=== PATIENT | male | born 1975 | race Two or more races ===

== ENCOUNTER 2017-09-19 15:21 | Inpatient (IN) | payer OTHER ==
[2017-09-19 15:31] VITALS: BMI 32.3
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
[2017-09-19] MEDS ORDERED: MAGNESIUM HYDROX 2400MG/30ML ORAL SUSPENSION 30 ML CUP PO PRN (18:02)
[2017-09-19] MEDS ORDERED: IBUPROFEN 400 MG TABLET (FP) PO PRN (18:02)
[2017-09-19] MEDS ORDERED: MENTHOL/PHENOL 1 EACH UD MM PRN (18:02)
[2017-09-19] MEDS ORDERED: MAG HYDROX/AL HYDROX/SIMETH 30 ML UNIT-DOSE CUP PO PRN (18:02)
[2017-09-19] MEDS ORDERED: MAGNESIUM CITRATE 300 ML BOTTLE PO PRN (18:02)
[2017-09-19] MEDS ORDERED: LOPERAMIDE HCL 2 MG CAPSULE PO PRN (18:02)
[2017-09-19] MEDS ORDERED: METHADONE HCL 10 MG TABLET (FOR DETOX USE ONLY) PO ONE ×2 (18:02→23:00)
[2017-09-19] MEDS ORDERED: P-EPHED 60MG/TRIPROLIDI 2.5MG TABLET PO PRN (18:02)
[2017-09-19] MEDS ORDERED: NICOTINE POLACRILEX 4 MG GUM BC PRN (18:02)
[2017-09-19] MEDS ORDERED: guaiFENesin/D-METHORPHAN HB 10 ML UNIT-DOSE CUPS PO PRN (18:02)
[2017-09-19] MEDS ORDERED: diazePAM 5 MG TABLET PO ONE (18:45)
[2017-09-19] MEDS: NICOTINE 21 MG/24 HOURS TOPICAL PATCH TD SCH (19:23)
[2017-09-19 21:22] LABS: URINE APPEARANCE TURBID; URINE BLOOD NEGATIVE (NEGATIVE); URINE COLOR YELLOW; URINE GLUCOSE (UA) NEGATIVE (NEGATIVE); URINE KETONE TRACE (NEGATIVE); URINE LEUK ESTERASE NEGATIVE (NEGATIVE); URINE NITRITE NEGATIVE (NEGATIVE); URINE UROBILINOGEN 4.0 E.U/dl mg/dL (0.2-1.0)
[2017-09-19 21:24] LABS: URINE PROTEIN 1+ (NEGATIVE)
[2017-09-19 21:26] LABS: EPI CELLS FEW /HPF (FEW); URINE BACTERIA RARE /hpf (NONE SEEN); URINE MUCUS MANY
[2017-09-19] MEDS ORDERED: MELATONIN 5 MG TABLETS PO PRN (22:00)
[2017-09-19] MEDS: THIAMINE HCL 100 MG TABLET (FP) PO SCH (22:20)
[2017-09-19] MEDS: BACITRACIN 0.9 GM PACKET TP SCH (22:21)
[2017-09-19] MEDS: diazePAM 5 MG TABLET PO SCH (22:21)
[2017-09-20] MEDS: diazePAM 5 MG TABLET PO SCH ×3 (05:42→22:24)
[2017-09-20] MEDS ORDERED: METHADONE HCL 10 MG TABLET PO SCH (07:00)
[2017-09-20] MEDS ORDERED: METHADONE HCL 10 MG TABLET ONE (07:19)
[2017-09-20] MEDS ORDERED: METHADONE HCL 40 MG DISPERSABLE TABLET ONE (07:20)
[2017-09-20] MEDS: METHADONE 80 MG, METHADONE 30 MG PO SCH (07:36)
[2017-09-20] MEDS ORDERED: METHADONE HCL 10 MG TABLET (FOR DETOX USE ONLY) PO SCH (10:00)
[2017-09-20 10:17] LABS: ALBUMIN 3.2 g/dl (3.4-5.0); ANION GAP 4 (8-16); BLOOD UREA NITROGEN 8 mg/dL (7-18); CALCIUM 8.2 mg/dL (8.5-10.1); CHLORIDE 106 mmol/L (98-107); CO2 29 mmol/L (21-32); GLUCOSE,RANDOM 94 mg/dL (74-106); POTASSIUM 3.9 mmol/L (3.5-5.1); SODIUM 139 mmol/L (136-145)
[2017-09-20 10:19] LABS: ALK PHOS 70 U/L (45-117); BILIRUBIN,TOTAL 0.2 mg/dL (0.2-1.0); CREATININE 0.8 mg/dL (0.7-1.3); HEMATOCRIT 37.3 % (35.4-49); HEMOGLOBIN 12.7 GM/dL (11.7-16.9); MCH 30.3 pg (25.7-33.7); MEAN CELL VOLUME 89.2 fl (80-96); MEAN PLT VOLUME 10.1 fl (7.5-11.1); PLATELET COUNT 164 K/MM3 (134-434); RBC 4.18 M/mm3 (4.00-5.60); RDW 13.9 % (11.9-15.9); SGOT/AST 67 U/L (15-37); SGPT/ALT 112 U/L (12-78); TOT PROT 6.4 g/dl (6.4-8.2); WHITE BLOOD COUNT 3.9 K/mm3 (4.0-10.0)
[2017-09-20] MEDS: PRENATAL VITAMINS W/ FOLIC ACID TABLET (FP) PO SCH (10:29)
[2017-09-20] MEDS: TOLNAFTATE 1% CREAM 15 GM TUBE TP SCH ×2 (10:29→22:24)
[2017-09-20] MEDS: BACITRACIN 0.9 GM PACKET TP SCH ×2 (10:29→22:24)
[2017-09-20] MEDS: NICOTINE 21 MG/24 HOURS TOPICAL PATCH TD SCH (10:29)
--- NOTE | 2017-09-20 10:53 | EKG ---
Test Reason : Blood Pressure : / mmHG Vent. Rate : 072 BPM Atrial Rate : 072 BPM P-R Int : 136 ms QRS Dur : 090 ms QT Int : 406 ms P-R-T Axes : 027 064 030 degrees QTc Int : 444 ms NORMAL SINUS RHYTHM NORMAL ECG NO PREVIOUS ECGS AVAILABLE Confirmed by AILYN YUAN, MATTIE ([id number]) on 09/20/2017 10:52:44 AM Referred By: Confirmed By:MATTIE ROBERTSON MD
--- NOTE | 2017-09-20 11:16 | PN ---
[facility] CIWA - CIWA Score Nausea/Vomitin-No Nausea/No Vomiting Muscle Tremors: 4-Moderate,w/Arms Extend Anxiety: 4-Mod. Anxious/Guarded Agitation: 4-Moderately Restless Paroxysmal Sweats: 1-Minimal Palms Moist Orientation: 0-Oriented Tacttile Disturbances: 3-Moderate Itch/Numb/Burn Auditory Disturbances: 0-None Visual Disturbances: 0-None Headache: 0-None Present CIWA-Ar Total Score: 16 S Progress Note (SOAP) Subjective: ANXIETY,SWEATS,RESTLESSNESS,FATIGUE, Objective: 09/20/17 11:15 Vital Signs Temperature 95.7 F L 09/20/17 09:24 Pulse Rate 79 09/20/17 09:24 Respiratory Rate 18 09/20/17 09:24 Blood Pressure 120/76 09/20/17 09:24 O2 Sat by Pulse Oximetry (%) Laboratory Last Values WBC 3.9 K/mm3 (4.0-10.0) L D 09/20/17 07:30 RBC 4.18 M/mm3 (4.00-5.60) 09/20/17 07:30 Hgb 12.7 GM/dL (11.7-16.9) 09/20/17 07:30 Hct 37.3 % (35.4-49) 09/20/17 07:30 MCV 89.2 fl (80-96) 09/20/17 07:30 MCH 30.3 pg (25.7-33.7) 09/20/17 07:30 MCHC 34.0 g/dl (32.0-35.9) 09/20/17 07:30 RDW 13.9 % (11.9-15.9) 09/20/17 07:30 Plt Count 164 K/MM3 (134-434) D 09/20/17 07:30 MPV 10.1 fl (7.5-11.1) 09/20/17 07:30 Sodium 139 mmol/L (136-145) 09/20/17 07:30 Potassium 3.9 mmol/L (3.5-5.1) 09/20/17 07:30 Chloride 106 mmol/L (98-107) 09/20/17 07:30 Carbon Dioxide 29 mmol/L (21-32) 09/20/17 07:30 Anion Gap 4 (8-16) L 09/20/17 07:30 BUN 8 mg/dL (7-18) D 09/20/17 07:30 Creatinine 0.8 mg/dL (0.7-1.3) 09/20/17 07:30 Creat Clearance w eGFR > 60 (>60) 09/20/17 07:30 Random Glucose 94 mg/dL (74-106) 09/20/17 07:30 Calcium 8.2 mg/dL (8.5-10.1) L 09/20/17 07:30 Total Bilirubin 0.2 mg/dL (0.2-1.0) D 09/20/17 07:30 AST 67 U/L (15-37) H D 09/20/17 07:30 ALT 112 U/L (12-78) H D 09/20/17 07:30 Alkaline Phosphatase 70 U/L (45-117) D 09/20/17 07:30 Total Protein 6.4 g/dl (6.4-8.2) 09/20/17 07:30 Albumin 3.2 g/dl (3.4-5.0) L 09/20/17 07:30 Urine Color Yellow 09/19/17 20:00 Urine Appearance Turbid 09/19/17 20:00 Urine pH 5.0 (5.0-8.0) 09/19/17 20:00 Ur Specific [place] 1.032 (1.001-1.035) 09/19/17 20:00 Urine Protein 1+ (NEGATIVE) H 09/19/17 20:00 Urine Glucose (UA) Negative (NEGATIVE) 09/19/17 20:00 Urine Ketones Trace (NEGATIVE) H 09/19/17 20:00 Urine Blood Negative (NEGATIVE) 09/19/17 20:00 Urine Nitrite Negative (NEGATIVE) 09/19/17 20:00 Urine Bilirubin 2.0 (<2.0 mg/dL) 09/19/17 20:00 Urine Urobilinogen 4.0 e.u/dl mg/dL (0.2-1.0) 09/19/17 20:00 Ur Leukocyte Esterase Negative (NEGATIVE) 09/19/17 20:00 Urine WBC (Auto) 4 /hpf (3-5) 09/19/17 20:00 Urine RBC (Auto) 14 /hpf (0-3) 09/19/17 20:00 Ur Epithelial Cells Few /HPF (FEW) 09/19/17 20:00 Urine Bacteria Rare /hpf (NONE SEEN) 09/19/17 20:00 Urine Mucus Many 09/19/17 20:00 OTHER LABS PENDING Assessment: 09/20/17 11:16 WITHDRAWAL SX Plan: CONTINUE DETOX
[2017-09-20 12:04] LABS: RPR REACTIVE 1:1 (NONREACTIVE)
[2017-09-20 12:05] LABS: TREPONEMA ANTIBODY PREVIOUSLY REACTIVE (NONREACTIVE)
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
[2017-09-20] MEDS: ACETAMINOPHEN 325 MG TABLET (FP) PO PRN (19:17)
[2017-09-20] MEDS: THIAMINE HCL 100 MG TABLET (FP) PO SCH (22:24)
[2017-09-21] MEDS ORDERED: METHADONE HCL 40 MG DISPERSABLE TABLET ONE (04:26)
[2017-09-21] MEDS ORDERED: METHADONE HCL 10 MG TABLET ONE (04:26)
[2017-09-21] MEDS: METHADONE 80 MG, METHADONE 30 MG PO SCH (05:44)
[2017-09-21] MEDS: diazePAM 5 MG TABLET PO PRN (05:46)
[2017-09-21] MEDS: BACITRACIN 0.9 GM PACKET TP SCH ×2 (09:46→22:28)
[2017-09-21] MEDS: ACETAMINOPHEN 325 MG TABLET (FP) PO PRN (09:46)
[2017-09-21] MEDS: diazePAM 5 MG TABLET PO SCH ×2 (09:46→22:28)
[2017-09-21] MEDS: PRENATAL VITAMINS W/ FOLIC ACID TABLET (FP) PO SCH (09:46)
[2017-09-21] MEDS: NICOTINE 21 MG/24 HOURS TOPICAL PATCH TD SCH (09:46)
[2017-09-21] MEDS: TOLNAFTATE 1% CREAM 15 GM TUBE TP SCH ×2 (09:51→22:28)
[2017-09-21] MEDS ORDERED: METHADONE HCL 5 MG TABLET (FOR DETOX USE ONLY) PO SCH (10:00)
--- NOTE | 2017-09-21 11:12 | PN ---
[facility] CIWA - CIWA Score Nausea/Vomitin-No Nausea/No Vomiting Muscle Tremors: 3 Anxiety: 3 Agitation: 3 Paroxysmal Sweats: 1-Minimal Palms Moist Orientation: 0-Oriented Tacttile Disturbances: 3-Moderate Itch/Numb/Burn Auditory Disturbances: 0-None Visual Disturbances: 0-None Headache: 0-None Present CIWA-Ar Total Score: 13 BHS Progress Note (SOAP) Subjective: SLIGHT ANXIETY,TREMORS,SWEATS. OOB WITH STEADY GAIT. Objective: 09/21/17 11:11 Vital Signs Temperature 96.3 F L 09/21/17 09:38 Pulse Rate 73 09/21/17 09:38 Respiratory Rate 18 09/21/17 09:38 Blood Pressure 110/74 09/21/17 09:38 O2 Sat by Pulse Oximetry (%) Laboratory Last Values WBC 3.9 K/mm3 (4.0-10.0) L D 09/20/17 07:30 RBC 4.18 M/mm3 (4.00-5.60) 09/20/17 07:30 Hgb 12.7 GM/dL (11.7-16.9) 09/20/17 07:30 Hct 37.3 % (35.4-49) 09/20/17 07:30 MCV 89.2 fl (80-96) 09/20/17 07:30 MCH 30.3 pg (25.7-33.7) 09/20/17 07:30 MCHC 34.0 g/dl (32.0-35.9) 09/20/17 07:30 RDW 13.9 % (11.9-15.9) 09/20/17 07:30 Plt Count 164 K/MM3 (134-434) D 09/20/17 07:30 MPV 10.1 fl (7.5-11.1) 09/20/17 07:30 Sodium 139 mmol/L (136-145) 09/20/17 07:30 Potassium 3.9 mmol/L (3.5-5.1) 09/20/17 07:30 Chloride 106 mmol/L (98-107) 09/20/17 07:30 Carbon Dioxide 29 mmol/L (21-32) 09/20/17 07:30 Anion Gap 4 (8-16) L 09/20/17 07:30 BUN 8 mg/dL (7-18) D 09/20/17 07:30 Creatinine 0.8 mg/dL (0.7-1.3) 09/20/17 07:30 Creat Clearance w eGFR > 60 (>60) 09/20/17 07:30 Random Glucose 94 mg/dL (74-106) 09/20/17 07:30 Calcium 8.2 mg/dL (8.5-10.1) L 09/20/17 07:30 Total Bilirubin 0.2 mg/dL (0.2-1.0) D 09/20/17 07:30 AST 67 U/L (15-37) H D 09/20/17 07:30 ALT 112 U/L (12-78) H D 09/20/17 07:30 Alkaline Phosphatase 70 U/L (45-117) D 09/20/17 07:30 Total Protein 6.4 g/dl (6.4-8.2) 09/20/17 07:30 Albumin 3.2 g/dl (3.4-5.0) L 09/20/17 07:30 Urine Color Yellow 09/19/17 20:00 Urine Appearance Turbid 09/19/17 20:00 Urine pH 5.0 (5.0-8.0) 09/19/17 20:00 Ur Specific [place] 1.032 (1.001-1.035) 09/19/17 20:00 Urine Protein 1+ (NEGATIVE) H 09/19/17 20:00 Urine Glucose (UA) Negative (NEGATIVE) 09/19/17 20:00 Urine Ketones Trace (NEGATIVE) H 09/19/17 20:00 Urine Blood Negative (NEGATIVE) 09/19/17 20:00 Urine Nitrite Negative (NEGATIVE) 09/19/17 20:00 Urine Bilirubin 2.0 (<2.0 mg/dL) 09/19/17 20:00 Urine Urobilinogen 4.0 e.u/dl mg/dL (0.2-1.0) 09/19/17 20:00 Ur Leukocyte Esterase Negative (NEGATIVE) 09/19/17 20:00 Urine WBC (Auto) 4 /hpf (3-5) 09/19/17 20:00 Urine RBC (Auto) 14 /hpf (0-3) 09/19/17 20:00 Ur Epithelial Cells Few /HPF (FEW) 09/19/17 20:00 Urine Bacteria Rare /hpf (NONE SEEN) 09/19/17 20:00 Urine Mucus Many 09/19/17 20:00 RPR Titer Reactive 1:1 (NONREACTIVE) H 09/20/17 07:30 T.pallidum Ab (MHA) Previously reactive (NONREACTIVE) 09/20/17 07:30 HIV 1&2 Antibody Screen Negative 09/20/17 07:30 HIV P24 Antigen Negative 09/20/17 07:30 LABS NOTED Assessment: 09/21/17 11:12 WITHDRAWAL SX Plan: CONTINUE DETOX
[2017-09-21] MEDS: THIAMINE HCL 100 MG TABLET (FP) PO SCH (22:29)
[2017-09-22] MEDS ORDERED: METHADONE HCL 10 MG TABLET ONE (04:56)
[2017-09-22] MEDS ORDERED: METHADONE HCL 40 MG DISPERSABLE TABLET ONE (04:56)
[2017-09-22] MEDS: diazePAM 5 MG TABLET PO PRN ×3 (05:33→17:43)
[2017-09-22] MEDS: METHADONE 80 MG, METHADONE 30 MG PO SCH (05:33)
[2017-09-22] MEDS: diazePAM 5 MG TABLET PO SCH ×2 (10:21→22:08)
[2017-09-22] MEDS: NICOTINE 21 MG/24 HOURS TOPICAL PATCH TD SCH (10:21)
[2017-09-22] MEDS: PRENATAL VITAMINS W/ FOLIC ACID TABLET (FP) PO SCH (10:21)
[2017-09-22] MEDS: TOLNAFTATE 1% CREAM 15 GM TUBE TP SCH ×2 (10:21→22:08)
[2017-09-22] MEDS: BACITRACIN 0.9 GM PACKET TP SCH ×2 (10:21→22:07)
--- NOTE | 2017-09-22 11:44 | PN ---
BHS Progress Note (SOAP) Subjective: DECREASED ANXIETY,SWEATS,FATIGUE. Objective: 09/22/17 11:41 Vital Signs Temperature 99.1 F 09/22/17 09:18 Pulse Rate 76 09/22/17 09:18 Respiratory Rate 18 09/22/17 09:18 Blood Pressure 118/77 09/22/17 09:18 O2 Sat by Pulse Oximetry (%) Laboratory Last Values WBC 3.9 K/mm3 (4.0-10.0) L D 09/20/17 07:30 RBC 4.18 M/mm3 (4.00-5.60) 09/20/17 07:30 Hgb 12.7 GM/dL (11.7-16.9) 09/20/17 07:30 Hct 37.3 % (35.4-49) 09/20/17 07:30 MCV 89.2 fl (80-96) 09/20/17 07:30 MCH 30.3 pg (25.7-33.7) 09/20/17 07:30 MCHC 34.0 g/dl (32.0-35.9) 09/20/17 07:30 RDW 13.9 % (11.9-15.9) 09/20/17 07:30 Plt Count 164 K/MM3 (134-434) D 09/20/17 07:30 MPV 10.1 fl (7.5-11.1) 09/20/17 07:30 Sodium 139 mmol/L (136-145) 09/20/17 07:30 Potassium 3.9 mmol/L (3.5-5.1) 09/20/17 07:30 Chloride 106 mmol/L (98-107) 09/20/17 07:30 Carbon Dioxide 29 mmol/L (21-32) 09/20/17 07:30 Anion Gap 4 (8-16) L 09/20/17 07:30 BUN 8 mg/dL (7-18) D 09/20/17 07:30 Creatinine 0.8 mg/dL (0.7-1.3) 09/20/17 07:30 Creat Clearance w eGFR > 60 (>60) 09/20/17 07:30 Random Glucose 94 mg/dL (74-106) 09/20/17 07:30 Calcium 8.2 mg/dL (8.5-10.1) L 09/20/17 07:30 Total Bilirubin 0.2 mg/dL (0.2-1.0) D 09/20/17 07:30 AST 67 U/L (15-37) H D 09/20/17 07:30 ALT 112 U/L (12-78) H D 09/20/17 07:30 Alkaline Phosphatase 70 U/L (45-117) D 09/20/17 07:30 Total Protein 6.4 g/dl (6.4-8.2) 09/20/17 07:30 Albumin 3.2 g/dl (3.4-5.0) L 09/20/17 07:30 Urine Color Yellow 09/19/17 20:00 Urine Appearance Turbid 09/19/17 20:00 Urine pH 5.0 (5.0-8.0) 09/19/17 20:00 Ur Specific [place] 1.032 (1.001-1.035) 09/19/17 20:00 Urine Protein 1+ (NEGATIVE) H 09/19/17 20:00 Urine Glucose (UA) Negative (NEGATIVE) 09/19/17 20:00 Urine Ketones Trace (NEGATIVE) H 09/19/17 20:00 Urine Blood Negative (NEGATIVE) 09/19/17 20:00 Urine Nitrite Negative (NEGATIVE) 09/19/17 20:00 Urine Bilirubin 2.0 (<2.0 mg/dL) 09/19/17 20:00 Urine Urobilinogen 4.0 e.u/dl mg/dL (0.2-1.0) 09/19/17 20:00 Ur Leukocyte Esterase Negative (NEGATIVE) 09/19/17 20:00 Urine WBC (Auto) 4 /hpf (3-5) 09/19/17 20:00 Urine RBC (Auto) 14 /hpf (0-3) 09/19/17 20:00 Ur Epithelial Cells Few /HPF (FEW) 09/19/17 20:00 Urine Bacteria Rare /hpf (NONE SEEN) 09/19/17 20:00 Urine Mucus Many 09/19/17 20:00 RPR Titer Reactive 1:1 (NONREACTIVE) H 09/20/17 07:30 T.pallidum Ab (MHA) Previously reactive (NONREACTIVE) 09/20/17 07:30 HIV 1&2 Antibody Screen Negative 09/20/17 07:30 HIV P24 Antigen Negative 09/20/17 07:30 Assessment: 09/22/17 11:41 WITHDRAWAL SX Plan: CONTINUE DETOX
[2017-09-22] MEDS ORDERED: FUROSEMIDE 40 MG TABLET (FP) PO ONE (16:13)
--- NOTE | 2017-09-22 16:28 | PN ---
BHS Progress Note Note: Pt c/o bilateral leg edema. exam: 2+ pitting edema, shirley plan:lasix 40 mg po now elevate both legs while in bed.
[2017-09-22] MEDS: THIAMINE HCL 100 MG TABLET (FP) PO SCH (22:38)
[2017-09-23] MEDS ORDERED: METHADONE HCL 10 MG TABLET ONE (03:45)
[2017-09-23] MEDS ORDERED: METHADONE HCL 40 MG DISPERSABLE TABLET ONE (03:45)
[2017-09-23] MEDS: METHADONE 80 MG, METHADONE 30 MG PO SCH (05:44)
[2017-09-23] MEDS: BACITRACIN 0.9 GM PACKET TP SCH ×2 (09:28→22:06)
[2017-09-23] MEDS: PRENATAL VITAMINS W/ FOLIC ACID TABLET (FP) PO SCH (09:28)
[2017-09-23] MEDS: TOLNAFTATE 1% CREAM 15 GM TUBE TP SCH ×2 (09:29→22:06)
[2017-09-23] MEDS: NICOTINE 21 MG/24 HOURS TOPICAL PATCH TD SCH (09:30)
[2017-09-23] MEDS ORDERED: diazePAM 5 MG TABLET PO SCH (10:00)
[2017-09-23] MEDS ORDERED: METHADONE HCL 10 MG TABLET (FOR DETOX USE ONLY) PO SCH (10:00)
--- NOTE | 2017-09-23 15:31 | PN ---
BHS Progress Note (SOAP) Subjective: Anxious, Sweating. Objective: PATIENT A & O X 3, OBSERVED AMBULATING ON UNIT. NO ACUTE DISTRESS. 09/23/17 15:30 Vital Signs Temperature 96.6 F L 09/23/17 11:21 Pulse Rate 75 09/23/17 11:21 Respiratory Rate 20 09/23/17 11:21 Blood Pressure 135/84 09/23/17 11:21 O2 Sat by Pulse Oximetry (%) Laboratory Tests 09/19/17 09/20/17 09/20/17 20:00 07:30 07:30 WBC 3.9 L D RBC 4.18 Hgb 12.7 Hct 37.3 MCV 89.2 MCH 30.3 MCHC 34.0 RDW 13.9 Plt Count 164 D MPV 10.1 Sodium Potassium Chloride Carbon Dioxide Anion Gap BUN Creatinine Creat Clearance w eGFR Random Glucose Calcium Total Bilirubin AST ALT Alkaline Phosphatase Total Protein Albumin Urine Color Yellow Urine Appearance Turbid Urine pH 5.0 Ur Specific [place] 1.032 Urine Protein 1+ H Urine Glucose (UA) Negative Urine Ketones Trace H Urine Blood Negative Urine Nitrite Negative Urine Bilirubin 2.0 Urine Urobilinogen 4.0 e.u/dl Ur Leukocyte Esterase Negative Urine WBC (Auto) 4 Urine RBC (Auto) 14 Ur Epithelial Cells Few Urine Bacteria Rare Urine Mucus Many RPR Titer T.pallidum Ab (MHA) HIV 1&2 Antibody Screen Negative HIV P24 Antigen Negative 09/20/17 09/20/17 07:30 07:30 WBC RBC Hgb Hct MCV MCH MCHC RDW Plt Count MPV Sodium 139 Potassium 3.9 Chloride 106 Carbon Dioxide 29 Anion Gap 4 L BUN 8 D Creatinine 0.8 Creat Clearance w eGFR > 60 Random Glucose 94 Calcium 8.2 L Total Bilirubin 0.2 D AST 67 H D ALT 112 H D Alkaline Phosphatase 70 D Total Protein 6.4 Albumin 3.2 L Urine Color Urine Appearance Urine pH Ur Specific [place] Urine Protein Urine Glucose (UA) Urine Ketones Urine Blood Urine Nitrite Urine Bilirubin Urine Urobilinogen Ur Leukocyte Esterase Urine WBC (Auto) Urine RBC (Auto) Ur Epithelial Cells Urine Bacteria Urine Mucus RPR Titer Reactive 1:1 H T.pallidum Ab (MHA) Previously reactive HIV 1&2 Antibody Screen HIV P24 Antigen LABS NOTED. Assessment: 09/23/17 15:30 WITHDRAWAL SYMPTOMS. Plan: CONTINUE DETOX. PATIENT ORIGINALLY SCHEDULED FOR DISCHARGE FROM DETOX TODAY. HOWEVER, PATIENT DID NOT LEAVE UNIT IN TIME TO BE ABLE TO GET TO [facility] IN [place], .. FOR TOMORROW'S MMTP DOSE. PATIENT TO BE DISCHARGED FROM DETOX UNIT TO [facility] AFTER RECEIVING AM MMTP DOSE. PATIENT VERBALIZED UNDERSTANDING.
[2017-09-23] MEDS: THIAMINE HCL 100 MG TABLET (FP) PO SCH (22:06)
[2017-09-24] MEDS ORDERED: METHADONE HCL 10 MG TABLET ONE (04:49)
[2017-09-24] MEDS ORDERED: METHADONE HCL 40 MG DISPERSABLE TABLET ONE (04:50)
[2017-09-24] MEDS ORDERED: METHADONE HCL 5 MG TABLET (FOR DETOX USE ONLY) PO SCH (06:00)
[2017-09-24] MEDS: METHADONE 80 MG, METHADONE 30 MG PO SCH (06:03)
[2017-09-24 06:21] VITALS: BP 117/76; PULSE 71; TEMP 96.2
--- NOTE | 2017-09-24 09:27 | DS ---
[facility] Detox Discharge Summary Admission Date: 09/19/17 Discharge Date: 09/24/17 - History Present History: Alcohol Dependence, Cannabis Dependence, Cocaine Dependence, Sedative Dependence - Physical Exam Results Vital Signs: Vital Signs Temperature 96.2 F L 09/24/17 06:21 Pulse Rate 71 09/24/17 06:21 Respiratory Rate 18 09/24/17 06:21 Blood Pressure 117/76 09/24/17 06:21 O2 Sat by Pulse Oximetry (%) - Treatment Hospital Course: Detox Protocol Followed, Detoxed Safely, Responded well, Discharged Condition Good, Rehab Referral Accepted - Medication Discharge Medications: Ambulatory Orders NK [No Known Home Medication] 09/19/17 - Diagnosis (1) Cocaine dependence Current Visit: Yes Status: Chronic Qualifiers: Substance use status: uncomplicated Qualified Code(s): F14.20 - Cocaine dependence, uncomplicated (2) Drug-induced mood disorder Current Visit: Yes Status: Acute (3) Nicotine dependence Current Visit: Yes Status: Chronic Qualifiers: Nicotine product type: cigarettes Substance use status: uncomplicated Qualified Code(s): F17.210 - Nicotine dependence, cigarettes, uncomplicated (4) Opioid dependence on agonist therapy Current Visit: Yes Status: Acute (5) Sedative, hypnotic or anxiolytic dependence with withdrawal, uncomplicated Current Visit: Yes Status: Chronic (6) Wound cellulitis Current Visit: Yes Status: Acute (7) Hepatitis C Current Visit: Yes Status: Chronic Qualifiers: Viral hepatitis chronicity: chronic Hepatic coma status: without hepatic coma Qualified Code(s): B18.2 - Chronic viral hepatitis C (8) Methadone maintenance therapy patient Current Visit: Yes Status: Chronic (9) Syphilitic chancre of penis Current Visit: Yes Status: Chronic (10) Weight loss Current Visit: No Status: Acute (11) Alcohol dependence with uncomplicated withdrawal Current Visit: Yes Status: Chronic (12) Cannabis dependence Current Visit: No Status: Chronic - AMA Did Patient Leave Against Medical Advice: No
== END 2017-09-24 10:34 | disposition home or self-care (01) | DRG 897 ==
LOC: YASAS 15:21 → Y3N 18:03
PROVIDERS: ADMIT Internal Medicine; ATTEND Internal Medicine
PROC: HZ2ZZZZ Detoxification Services for Substance Abuse Treatment (ICD-10-PCS; principal; 2017-09-19)
DX: F11.20 Opioid dependence, uncomplicated (principal); F13.230 Sedative, hypnotic or anxiolytic dependence with withdrawal, uncomplicated; F10.230 Alcohol dependence with withdrawal, uncomplicated; F14.20 Cocaine dependence, uncomplicated; L03.90 Cellulitis, unspecified; F12.20 Cannabis dependence, uncomplicated; F17.210 Nicotine dependence, cigarettes, uncomplicated; F19.24 Other psychoactive substance dependence with psychoactive substance-induced mood disorder; F32.9 Major depressive disorder, single episode, unspecified; B18.2 Chronic viral hepatitis C; A51.0 Primary genital syphilis; R63.4 Abnormal weight loss; Z68.32 Body mass index [BMI] 32.0-32.9, adult
CPT/HCPCS: 36415; 71046-TC-FY; 80053; 81003; 81015; 85027; 86593; 86780; 87389; 93005; 93010

== ENCOUNTER 2018-01-25 11:56 | Inpatient (IN) | payer OTHER ==
[2018-01-25 13:05] VITALS: BMI 31.3
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
[2018-01-25] MEDS ORDERED: guaiFENesin/D-METHORPHAN HB 10 ML UNIT-DOSE CUPS PO PRN (15:02)
[2018-01-25] MEDS ORDERED: hydrOXYzine PAMOATE 25 MG CAPSULE (FP) PO PRN (15:02)
[2018-01-25] MEDS ORDERED: MAG HYDROX/AL HYDROX/SIMETH 30 ML UNIT-DOSE CUP PO PRN (15:02)
[2018-01-25] MEDS ORDERED: MAGNESIUM HYDROX 2400MG/30ML ORAL SUSPENSION 30 ML CUP PO PRN (15:02)
[2018-01-25] MEDS ORDERED: ACETAMINOPHEN 325 MG TABLET (FP) PO PRN (15:02)
[2018-01-25] MEDS ORDERED: IBUPROFEN 400 MG TABLET (FP) PO PRN (15:02)
[2018-01-25] MEDS ORDERED: MAGNESIUM CITRATE 300 ML BOTTLE PO PRN (15:02)
[2018-01-25] MEDS ORDERED: P-EPHED 60MG/TRIPROLIDI 2.5MG TABLET PO PRN (15:02)
[2018-01-25] MEDS ORDERED: LOPERAMIDE HCL 2 MG CAPSULE PO PRN (15:02)
[2018-01-25] MEDS ORDERED: MENTHOL/PHENOL 1 EACH UD MM PRN (15:02)
[2018-01-25] MEDS ORDERED: ALBUTEROL SO4 8 GM HFA INHALER IH PRN (15:07)
[2018-01-25] MEDS ORDERED: diazePAM 5 MG TABLET PO ONE (15:30)
[2018-01-25] MEDS: NICOTINE 21 MG/24 HOURS TOPICAL PATCH TD SCH (17:34)
[2018-01-25] MEDS ORDERED: CEPHALEXIN MONOHYDRATE 500 MG CAPSULE (UD) PO SCH (18:00)
[2018-01-25] MEDS ORDERED: MELATONIN 5 MG TABLETS PO PRN (22:00)
[2018-01-25] MEDS: SULFAMETHOXAZOLE/TRIMETHOPRIM 800MG/160MG D.S. TABLET PO SCH (22:28)
[2018-01-25] MEDS: THIAMINE HCL 100 MG TABLET (FP) PO SCH (22:28)
[2018-01-25] MEDS: diazePAM 5 MG TABLET PO SCH (22:29)
[2018-01-25 23:03] LABS: URINE APPEARANCE TURBID; URINE COLOR YELLOW; URINE GLUCOSE (UA) NEGATIVE (NEGATIVE); URINE KETONE NEGATIVE (NEGATIVE); URINE LEUK ESTERASE NEGATIVE (NEGATIVE); URINE NITRITE NEGATIVE (NEGATIVE); URINE UROBILINOGEN 4.0 E.U/dl mg/dL (0.2-1.0)
[2018-01-25 23:18] LABS: URINE PROTEIN 1+ (NEGATIVE)
[2018-01-25 23:21] LABS: URINE MUCUS MANY
[2018-01-26] MEDS: diazePAM 5 MG TABLET PO SCH ×3 (06:02→22:01)
[2018-01-26 09:53] LABS: HEMATOCRIT 41.6 % (35.4-49); HEMOGLOBIN 14.3 GM/dL (11.7-16.9); MCH 30.4 pg (25.7-33.7); MCHC 34.3 g/dl (32.0-35.9); MEAN CELL VOLUME 88.5 fl (80-96); MEAN PLT VOLUME 10.7 fl (7.5-11.1); PLATELET COUNT 215 K/MM3 (134-434); RDW 14.8 % (11.9-15.9); WHITE BLOOD COUNT 6.3 K/mm3 (4.0-10.0)
[2018-01-26] MEDS: SULFAMETHOXAZOLE/TRIMETHOPRIM 800MG/160MG D.S. TABLET PO SCH ×2 (10:20→22:03)
[2018-01-26] MEDS: PRENATAL VITAMINS W/ FOLIC ACID TABLET (FP) PO SCH (10:21)
[2018-01-26] MEDS: NICOTINE 21 MG/24 HOURS TOPICAL PATCH TD SCH (10:21)
[2018-01-26] MEDS: diazePAM 5 MG TABLET PO PRN (10:21)
[2018-01-26] MEDS: METHADONE HCL 40 MG DISPERSABLE TABLET PO SCH (10:21)
[2018-01-26 10:44] LABS: ALK PHOS 95 U/L (45-117); ANION GAP 9 (8-16); BLOOD UREA NITROGEN 9 mg/dL (7-18); CALCIUM 9.5 mg/dL (8.5-10.1); CHLORIDE 104 mmol/L (98-107); CO2 28 mmol/L (21-32); CREATININE 1.2 mg/dL (0.7-1.3); GLUCOSE,RANDOM 128 mg/dL (74-106); POTASSIUM 4.1 mmol/L (3.5-5.1); SGOT/AST 117 U/L (15-37); SGPT/ALT 162 U/L (12-78); SODIUM 141 mmol/L (136-145); TOT PROT 8.4 g/dl (6.4-8.2)
[2018-01-26] MEDS: TOLNAFTATE 1% CREAM 15 GM TUBE TP SCH ×2 (11:00→22:02)
[2018-01-26] MEDS: HYDROCORTISONE 0.5% TOPICAL CREAM 30 GM TUBE TP SCH ×2 (11:06→22:02)
--- NOTE | 2018-01-26 11:30 | PN ---
S CIWA - CIWA Score Nausea/Vomitin Muscle Tremors: 3 Anxiety: 3 Agitation: 3 Paroxysmal Sweats: 1-Minimal Palms Moist Orientation: 0-Oriented Tacttile Disturbances: 1-Very Mild Itch/Numbness Auditory Disturbances: 1-Very Mild Visual Disturbances: 0-None Headache: 2-Mild CIWA-Ar Total Score: 17 BHS Progress Note (SOAP) Subjective: alert,irritable,anxious,interrupted sleep,tremor,pain in the body,rah left hand Objective: 01/26/18 11:25 Vital Signs Temperature 96.3 F L 01/26/18 09:48 Pulse Rate 67 01/26/18 09:48 Respiratory Rate 20 01/26/18 09:48 Blood Pressure 119/65 01/26/18 09:48 O2 Sat by Pulse Oximetry (%) ekg nsr,non specific t qt/qtc 346/365 no chest pain,no sob,no dizziness Laboratory Last Values WBC 6.3 K/mm3 (4.0-10.0) 01/26/18 06:00 RBC 4.70 M/mm3 (4.00-5.60) 01/26/18 06:00 Hgb 14.3 GM/dL (11.7-16.9) 01/26/18 06:00 Hct 41.6 % (35.4-49) 01/26/18 06:00 MCV 88.5 fl (80-96) 01/26/18 06:00 MCH 30.4 pg (25.7-33.7) 01/26/18 06:00 MCHC 34.3 g/dl (32.0-35.9) 01/26/18 06:00 RDW 14.8 % (11.9-15.9) 01/26/18 06:00 Plt Count 215 K/MM3 (134-434) D 01/26/18 06:00 MPV 10.7 fl (7.5-11.1) 01/26/18 06:00 Sodium 141 mmol/L (136-145) 01/26/18 06:00 Potassium 4.1 mmol/L (3.5-5.1) 01/26/18 06:00 Chloride 104 mmol/L (98-107) 01/26/18 06:00 Carbon Dioxide 28 mmol/L (21-32) 01/26/18 06:00 Anion Gap 9 (8-16) 01/26/18 06:00 BUN 9 mg/dL (7-18) 01/26/18 06:00 Creatinine 1.2 mg/dL (0.7-1.3) 01/26/18 06:00 Creat Clearance w eGFR > 60 (>60) 01/26/18 06:00 POC Glucometer 122 UNITS (80-120) 01/26/18 05:34 Random Glucose 128 mg/dL (74-106) H D 01/26/18 06:00 Calcium 9.5 mg/dL (8.5-10.1) 01/26/18 06:00 Total Bilirubin 1.0 mg/dL (0.2-1.0) 01/26/18 06:00 AST 117 U/L (15-37) H D 01/26/18 06:00 ALT 162 U/L (12-78) H D 01/26/18 06:00 Alkaline Phosphatase 95 U/L (45-117) 01/26/18 06:00 Total Protein 8.4 g/dl (6.4-8.2) H 01/26/18 06:00 Albumin 4.0 g/dl (3.4-5.0) 01/26/18 06:00 Urine Color Yellow 01/25/18 21:20 Urine Appearance Turbid 01/25/18 21:20 Urine pH 5.0 (5.0-8.0) 01/25/18 21:20 Ur Specific [place] 1.033 (1.001-1.035) 01/25/18 21:20 Urine Protein 1+ (NEGATIVE) H 01/25/18 21:20 Urine Glucose (UA) Negative (NEGATIVE) 01/25/18 21:20 Urine Ketones Negative (NEGATIVE) 01/25/18 21:20 Urine Blood Negative (NEGATIVE) 01/25/18 21:20 Urine Nitrite Negative (NEGATIVE) 01/25/18 21:20 Urine Bilirubin 2.0 (<2.0 mg/dL) 01/25/18 21:20 Urine Urobilinogen 4.0 e.u/dl mg/dL (0.2-1.0) 01/25/18 21:20 Ur Leukocyte Esterase Negative (NEGATIVE) 01/25/18 21:20 Urine WBC (Auto) None /hpf (3-5) 01/25/18 21:20 Urine RBC (Auto) 2 /hpf (0-3) 01/25/18 21:20 Urine Mucus Many 01/25/18 21:20 01/26/18 11:27 labs pending Assessment: 01/26/18 11:27 withdrawal symptom Plan: continue detox,d/c tylenol due to elevation of alt,ast,repeat alt,ast,inr in am , rash left hand hydrocortisone cream,benadryl 25 mgs po q 6 hrs prn for itching
--- NOTE | 2018-01-26 13:14 | CONSULT ---
[facility] Psychiatric Consult - Data Date of interview: 01/26/18 Admission source: [facility] Identifying data: This is 42 yo H single childless male,unemployed,supported by SSD. Substance Abuse History: Reports cocaine since 17 yo,3-4 bags daily,heroin iv since 17 yo,2-3 bags daily,Xanax since 34 yo,up to 18 mg po daily. Medical History: BA,Hep C,Anemia,H/O Siphylis. Psychiatric History: Patient denies histoy of psychiatric treatment stating that his problems associated to his drug abuse.He is currently on MMTP(100 mg po daily) at [facility] in the [place]. Physical/Sexual Abuse/Trauma History: denies Mental Status Exam - Mental Status Exam Alert and Oriented to: Time, Place, Person Cognitive Function: Grossly Intact Patient Appearance: Unkempt Mood: Euthymic Affect: Appropriate, Mood Congruent Patient Behavior: Cooperative Speech Pattern: Clear Voice Loudness: Normal Thought Process: Goal Oriented Thought Disorder: Not Present Hallucinations: Denies Suicidal Ideation: Denies Homicidal Ideation: Denies Insight/Judgement: Fair Sleep: Fair Appetite: Fair Muscle strength/Tone: Normal Gait/Station: Normal Psychiatric Findings - Problem List ([place] 1, 2,3) (1) Contact dermatitis Current Visit: Yes Status: Chronic (2) Tinea pedis Current Visit: Yes Status: Chronic (3) Drug-induced mood disorder Current Visit: Yes Status: Chronic (4) Opioid dependence on agonist therapy Current Visit: Yes Status: Chronic (5) Weight loss Current Visit: Yes Status: Acute (6) Wound cellulitis Current Visit: Yes Status: Acute (7) Alcohol dependence with uncomplicated withdrawal Current Visit: Yes Status: Chronic (8) Cannabis dependence Current Visit: Yes Status: Chronic - Initial Treatment Plan Initial Treatment Plan: Will mnitor progress.patient has no need psychotropic medications at present.
[2018-01-26] MEDS: THIAMINE HCL 100 MG TABLET (FP) PO SCH (22:01)
[2018-01-26] MEDS: diphenhydrAMINE HCL 25 MG CAPSULE (FP) PO PRN (22:04)
[2018-01-27] MEDS: METHADONE HCL 40 MG DISPERSABLE TABLET PO SCH (06:21)
[2018-01-27] MEDS: diazePAM 5 MG TABLET PO PRN ×2 (06:23→19:32)
--- NOTE | 2018-01-27 09:04 | EKG ---
Test Reason : Blood Pressure : / mmHG Vent. Rate : 067 BPM Atrial Rate : 067 BPM P-R Int : 130 ms QRS Dur : 094 ms QT Int : 346 ms P-R-T Axes : 013 064 028 degrees QTc Int : 365 ms NORMAL SINUS RHYTHM NONSPECIFIC T WAVE ABNORMALITY ABNORMAL ECG WHEN COMPARED WITH ECG OF 19-SEP-2017 19:36, QT HAS SHORTENED Confirmed by AILYN YUAN, MATTIE ([id number]) on 01/27/2018 9:03:57 AM Referred By: Confirmed By:MATTIE ROBERTSON MD
[2018-01-27] MEDS: SULFAMETHOXAZOLE/TRIMETHOPRIM 800MG/160MG D.S. TABLET PO SCH ×2 (10:49→22:45)
[2018-01-27] MEDS: NICOTINE 21 MG/24 HOURS TOPICAL PATCH TD SCH (10:50)
[2018-01-27] MEDS: HYDROCORTISONE 0.5% TOPICAL CREAM 30 GM TUBE TP SCH ×2 (10:50→22:45)
[2018-01-27] MEDS: diazePAM 5 MG TABLET PO SCH ×2 (10:50→22:44)
[2018-01-27] MEDS: PRENATAL VITAMINS W/ FOLIC ACID TABLET (FP) PO SCH (10:50)
[2018-01-27] MEDS: TOLNAFTATE 1% CREAM 15 GM TUBE TP SCH ×2 (10:50→22:45)
--- NOTE | 2018-01-27 10:52 | PN ---
BHS CIWA - CIWA Score Nausea/Vomitin Muscle Tremors: 3 Anxiety: 2 Agitation: 2 Paroxysmal Sweats: 1-Minimal Palms Moist Orientation: 0-Oriented Tacttile Disturbances: 1-Very Mild Itch/Numbness Auditory Disturbances: 1-Very Mild Visual Disturbances: 0-None Headache: 2-Mild CIWA-Ar Total Score: 15 BHS Progress Note (SOAP) Subjective: alert,irritable,anxious,tremor,pain in the left hand,tip of penis,with erythema, redness with blister formation Objective: 01/27/18 10:50 Vital Signs Temperature 97.2 F L 01/27/18 10:00 Pulse Rate 55 L 01/27/18 10:00 Respiratory Rate 16 01/27/18 10:00 Blood Pressure 119/71 01/27/18 10:00 O2 Sat by Pulse Oximetry (%) Assessment: 01/27/18 10:50 withdrawal symptom Plan: continue detox,to er at [facility] for evaluation and treatment cellulitis .allergy case endorsed to rosalba Nielson at [facility]
[2018-01-27] MEDS: diphenhydrAMINE HCL 25 MG CAPSULE (FP) PO PRN ×2 (11:01→22:47)
[2018-01-27] MEDS: THIAMINE HCL 100 MG TABLET (FP) PO SCH (22:46)
[2018-01-28] MEDS: METHADONE HCL 40 MG DISPERSABLE TABLET PO SCH (06:44)
[2018-01-28] MEDS: diazePAM 5 MG TABLET PO PRN (06:48)
[2018-01-28] MEDS: SULFAMETHOXAZOLE/TRIMETHOPRIM 800MG/160MG D.S. TABLET PO SCH (10:36)
[2018-01-28] MEDS: PRENATAL VITAMINS W/ FOLIC ACID TABLET (FP) PO SCH (10:36)
[2018-01-28] MEDS: TOLNAFTATE 1% CREAM 15 GM TUBE TP SCH ×2 (10:37→22:24)
[2018-01-28] MEDS: HYDROCORTISONE 0.5% TOPICAL CREAM 30 GM TUBE TP SCH ×2 (10:37→22:24)
[2018-01-28] MEDS: diazePAM 5 MG TABLET PO SCH ×2 (10:37→22:23)
[2018-01-28] MEDS: NICOTINE 21 MG/24 HOURS TOPICAL PATCH TD SCH (10:37)
--- NOTE | 2018-01-28 11:07 | PN ---
[facility] Progress Note (SOAP) Subjective: sleep better at night less sweat no gi distress social with peers in day room Objective: 01/28/18 11:06 Vital Signs Temperature 97.7 F 01/28/18 10:46 Pulse Rate 85 01/28/18 10:46 Respiratory Rate 18 01/28/18 10:46 Blood Pressure 131/73 01/28/18 10:46 O2 Sat by Pulse Oximetry (%) Laboratory Last Values WBC 6.3 K/mm3 (4.0-10.0) 01/26/18 06:00 RBC 4.70 M/mm3 (4.00-5.60) 01/26/18 06:00 Hgb 14.3 GM/dL (11.7-16.9) 01/26/18 06:00 Hct 41.6 % (35.4-49) 01/26/18 06:00 MCV 88.5 fl (80-96) 01/26/18 06:00 MCH 30.4 pg (25.7-33.7) 01/26/18 06:00 MCHC 34.3 g/dl (32.0-35.9) 01/26/18 06:00 RDW 14.8 % (11.9-15.9) 01/26/18 06:00 Plt Count 215 K/MM3 (134-434) D 01/26/18 06:00 MPV 10.7 fl (7.5-11.1) 01/26/18 06:00 Sodium 141 mmol/L (136-145) 01/26/18 06:00 Potassium 4.1 mmol/L (3.5-5.1) 01/26/18 06:00 Chloride 104 mmol/L (98-107) 01/26/18 06:00 Carbon Dioxide 28 mmol/L (21-32) 01/26/18 06:00 Anion Gap 9 (8-16) 01/26/18 06:00 BUN 9 mg/dL (7-18) 01/26/18 06:00 Creatinine 1.2 mg/dL (0.7-1.3) 01/26/18 06:00 Creat Clearance w eGFR > 60 (>60) 01/26/18 06:00 POC Glucometer 122 UNITS (80-120) 01/26/18 05:34 Random Glucose 128 mg/dL (74-106) H D 01/26/18 06:00 Calcium 9.5 mg/dL (8.5-10.1) 01/26/18 06:00 Total Bilirubin 1.0 mg/dL (0.2-1.0) 01/26/18 06:00 AST 117 U/L (15-37) H D 01/26/18 06:00 ALT 162 U/L (12-78) H D 01/26/18 06:00 Alkaline Phosphatase 95 U/L (45-117) 01/26/18 06:00 Total Protein 8.4 g/dl (6.4-8.2) H 01/26/18 06:00 Albumin 4.0 g/dl (3.4-5.0) 01/26/18 06:00 Urine Color Yellow 01/25/18 21:20 Urine Appearance Turbid 01/25/18 21:20 Urine pH 5.0 (5.0-8.0) 01/25/18 21:20 Ur Specific [place] 1.033 (1.001-1.035) 01/25/18 21:20 Urine Protein 1+ (NEGATIVE) H 01/25/18 21:20 Urine Glucose (UA) Negative (NEGATIVE) 01/25/18 21:20 Urine Ketones Negative (NEGATIVE) 01/25/18 21:20 Urine Blood Negative (NEGATIVE) 01/25/18 21:20 Urine Nitrite Negative (NEGATIVE) 01/25/18 21:20 Urine Bilirubin 2.0 (<2.0 mg/dL) 01/25/18 21:20 Urine Urobilinogen 4.0 e.u/dl mg/dL (0.2-1.0) 01/25/18 21:20 Ur Leukocyte Esterase Negative (NEGATIVE) 01/25/18 21:20 Urine WBC (Auto) None /hpf (3-5) 01/25/18 21:20 Urine RBC (Auto) 2 /hpf (0-3) 01/25/18 21:20 Urine Mucus Many 01/25/18 21:20 HIV 1&2 Antibody Screen Negative 01/25/18 14:00 HIV P24 Antigen Negative 01/25/18 14:00 lab noted Assessment: 01/28/18 11:06 mild alcohol withdrawal sx Plan: medically supervised detox
[2018-01-28] MEDS ORDERED: predniSONE 20 MG TABLET (UD) PO ONE (12:15)
--- NOTE | 2018-01-28 12:25 | PN ---
[facility] Progress Note Note: addendum patient clear for er at [facility] to return to [address] [place] [address] to continue detox receiving prednisone 60 mgs po on 01/27/18 and benadryl 50 mgs po to continue prednisone 40 mgs today and taper off prednisone continue benadryl 25 mgs po prn q 6 hrs for itching in view of no erythema,no leucocytosis,afebrile will d/c bactrim ds patient has been refusing bactrim ds continue detox possible discharge in am
[2018-01-28 14:39] LABS: RPR REACTIVE 1:1 (NONREACTIVE); TREPONEMA ANTIBODY PREVIOUSLY REACTIVE (NONREACTIVE)
[2018-01-28] MEDS: THIAMINE HCL 100 MG TABLET (FP) PO SCH (22:23)
[2018-01-28] MEDS: diphenhydrAMINE HCL 25 MG CAPSULE (FP) PO PRN (22:24)
[2018-01-29] MEDS: METHADONE HCL 40 MG DISPERSABLE TABLET PO SCH (05:47)
[2018-01-29] MEDS ORDERED: diazePAM 5 MG TABLET PO SCH ×2 (07:00→10:00)
[2018-01-29 07:07] VITALS: TEMP 97.3
--- NOTE | 2018-01-29 09:07 | PN ---
[facility] Progress Note (SOAP) Subjective: alert,no complaint.itching is less,no erythema Objective: 01/29/18 09:03 Vital Signs Temperature 97.3 F L 01/29/18 07:07 Pulse Rate 64 01/29/18 07:07 Respiratory Rate 18 01/29/18 07:07 Blood Pressure 124/77 01/29/18 07:07 O2 Sat by Pulse Oximetry (%) Assessment: 01/29/18 09:04 no withdrawal symptom Plan: discharge today,on benadryl 25 mgs po q 6 hra prn for itching,teper off prednisone, follow up with primary care physician and methadone clinic
--- NOTE | 2018-01-29 09:13 | DS ---
[facility] Detox Discharge Summary Admission Date: 01/25/18 Discharge Date: 01/29/18 - History Present History: Cocaine Dependence, Sedative Dependence, MMTP Additional Comments: follow up with after care program as arrangement and primary care provider or [facility] for follow up and methadone program Pertinent Past History: hepatitis c nicotine dependence contact dermatitis - Physical Exam Results Vital Signs: Vital Signs Temperature 97.3 F L 01/29/18 07:07 Pulse Rate 64 01/29/18 07:07 Respiratory Rate 18 01/29/18 07:07 Blood Pressure 124/77 01/29/18 07:07 O2 Sat by Pulse Oximetry (%) Pertinent Admission Physical Exam Findings: withdrawal signs and symptom Laboratory Last Values WBC 6.3 K/mm3 (4.0-10.0) 01/26/18 06:00 RBC 4.70 M/mm3 (4.00-5.60) 01/26/18 06:00 Hgb 14.3 GM/dL (11.7-16.9) 01/26/18 06:00 Hct 41.6 % (35.4-49) 01/26/18 06:00 MCV 88.5 fl (80-96) 01/26/18 06:00 MCH 30.4 pg (25.7-33.7) 01/26/18 06:00 MCHC 34.3 g/dl (32.0-35.9) 01/26/18 06:00 RDW 14.8 % (11.9-15.9) 01/26/18 06:00 Plt Count 215 K/MM3 (134-434) D 01/26/18 06:00 MPV 10.7 fl (7.5-11.1) 01/26/18 06:00 Sodium 141 mmol/L (136-145) 01/26/18 06:00 Potassium 4.1 mmol/L (3.5-5.1) 01/26/18 06:00 Chloride 104 mmol/L (98-107) 01/26/18 06:00 Carbon Dioxide 28 mmol/L (21-32) 01/26/18 06:00 Anion Gap 9 (8-16) 01/26/18 06:00 BUN 9 mg/dL (7-18) 01/26/18 06:00 Creatinine 1.2 mg/dL (0.7-1.3) 01/26/18 06:00 Creat Clearance w eGFR > 60 (>60) 01/26/18 06:00 POC Glucometer 122 UNITS (80-120) 01/26/18 05:34 Random Glucose 128 mg/dL (74-106) H D 01/26/18 06:00 Calcium 9.5 mg/dL (8.5-10.1) 01/26/18 06:00 Total Bilirubin 1.0 mg/dL (0.2-1.0) 01/26/18 06:00 AST 117 U/L (15-37) H D 01/26/18 06:00 ALT 162 U/L (12-78) H D 01/26/18 06:00 Alkaline Phosphatase 95 U/L (45-117) 01/26/18 06:00 Total Protein 8.4 g/dl (6.4-8.2) H 01/26/18 06:00 Albumin 4.0 g/dl (3.4-5.0) 01/26/18 06:00 Urine Color Yellow 01/25/18 21:20 Urine Appearance Turbid 01/25/18 21:20 Urine pH 5.0 (5.0-8.0) 01/25/18 21:20 Ur Specific [place] 1.033 (1.001-1.035) 01/25/18 21:20 Urine Protein 1+ (NEGATIVE) H 01/25/18 21:20 Urine Glucose (UA) Negative (NEGATIVE) 01/25/18 21:20 Urine Ketones Negative (NEGATIVE) 01/25/18 21:20 Urine Blood Negative (NEGATIVE) 01/25/18 21:20 Urine Nitrite Negative (NEGATIVE) 01/25/18 21:20 Urine Bilirubin 2.0 (<2.0 mg/dL) 01/25/18 21:20 Urine Urobilinogen 4.0 e.u/dl mg/dL (0.2-1.0) 01/25/18 21:20 Ur Leukocyte Esterase Negative (NEGATIVE) 01/25/18 21:20 Urine WBC (Auto) None /hpf (3-5) 01/25/18 21:20 Urine RBC (Auto) 2 /hpf (0-3) 01/25/18 21:20 Urine Mucus Many 01/25/18 21:20 RPR Titer Reactive 1:1 (NONREACTIVE) H 01/26/18 06:00 T.pallidum Ab (MHA) Previously reactive (NONREACTIVE) 01/26/18 06:00 HIV 1&2 Antibody Screen Negative 01/25/18 14:00 HIV P24 Antigen Negative 01/25/18 14:00 Vital Signs Temperature 97.3 F L 01/29/18 07:07 Pulse Rate 64 01/29/18 07:07 Respiratory Rate 18 01/29/18 07:07 Blood Pressure 124/77 01/29/18 07:07 O2 Sat by Pulse Oximetry (%) - Treatment Hospital Course: Detox Protocol Followed, Detoxed Safely, Responded well, Discharged Condition Good Patient has Accepted a Rehab Referral to: declined - Medication Discharge Medications: Ambulatory Orders Methadone [Dolophine -] 0 mg PO DAILY 01/27/18 - Diagnosis (1) Sedative, hypnotic or anxiolytic dependence with withdrawal, uncomplicated Current Visit: No Status: Chronic (2) Opioid dependence on agonist therapy Current Visit: Yes Status: Chronic (3) Weight loss Current Visit: Yes Status: Acute (4) Wound cellulitis Current Visit: Yes Status: Acute (5) Alcohol dependence with uncomplicated withdrawal Current Visit: Yes Status: Chronic (6) Cocaine dependence Current Visit: No Status: Chronic Qualifiers: Substance use status: uncomplicated Qualified Code(s): F14.20 - Cocaine dependence, uncomplicated (7) Hepatitis C Current Visit: No Status: Chronic Qualifiers: Viral hepatitis chronicity: chronic Hepatic coma status: without hepatic coma Qualified Code(s): B18.2 - Chronic viral hepatitis C (8) Nicotine dependence Current Visit: No Status: Chronic Qualifiers: Nicotine product type: cigarettes Substance use status: uncomplicated Qualified Code(s): F17.210 - Nicotine dependence, cigarettes, uncomplicated (9) Tinea pedis Current Visit: Yes Status: Chronic (10) Contact dermatitis Current Visit: Yes Status: Chronic - AMA Did Patient Leave Against Medical Advice: No
[2018-01-29 09:52] VITALS: BP 124/69; PULSE 73
[2018-01-29] MEDS ORDERED: predniSONE 10 MG TABLET (UD) PO ONE (10:00)
[2018-01-29] MEDS: PRENATAL VITAMINS W/ FOLIC ACID TABLET (FP) PO SCH (10:32)
[2018-01-29] MEDS: NICOTINE 21 MG/24 HOURS TOPICAL PATCH TD SCH (10:32)
[2018-01-29] MEDS: TOLNAFTATE 1% CREAM 15 GM TUBE TP SCH (10:35)
[2018-01-29] MEDS: HYDROCORTISONE 0.5% TOPICAL CREAM 30 GM TUBE TP SCH (10:36)
[2018-01-30] MEDS ORDERED: predniSONE 20 MG TABLET (UD) PO ONE (10:00)
[2018-01-31] MEDS ORDERED: predniSONE 10 MG TABLET (UD) PO ONE (12:19)
[2018-02-01] MEDS ORDERED: predniSONE 5 MG TABLET (UD) PO ONE (01:00)
== END 2018-01-29 10:50 | disposition home or self-care (01) | DRG 897 ==
LOC: YASAS 11:56 → Y6N 15:25
PROVIDERS: ADMIT Surgery; ATTEND Surgery
PROC: HZ2ZZZZ Detoxification Services for Substance Abuse Treatment (ICD-10-PCS; principal; 2018-01-25)
DX: F10.230 Alcohol dependence with withdrawal, uncomplicated (principal); F11.20 Opioid dependence, uncomplicated; F14.20 Cocaine dependence, uncomplicated; L03.114 Cellulitis of left upper limb; L03.113 Cellulitis of right upper limb; F13.230 Sedative, hypnotic or anxiolytic dependence with withdrawal, uncomplicated; F17.210 Nicotine dependence, cigarettes, uncomplicated; F19.24 Other psychoactive substance dependence with psychoactive substance-induced mood disorder; B18.2 Chronic viral hepatitis C; B35.3 Tinea pedis; L30.9 Dermatitis, unspecified; D64.9 Anemia, unspecified; J45.909 Unspecified asthma, uncomplicated; Z88.0 Allergy status to penicillin; Z91.013 Allergy to seafood; Z87.898 Personal history of other specified conditions
CPT/HCPCS: 36415; 80053; 81003; 81015; 82962; 85027; 86593; 86780; 87389; 93005; 93010

== ENCOUNTER 2018-01-27 13:05 | Emergency (ER) | payer OTHER ==
[2018-01-27 13:32] VITALS: TEMP 98.6; BMI 31.3
--- NOTE | 2018-01-27 14:18 | PDOC ---
Attending Attestation - Resident Resident Name: Lucia Han - ED Attending Attestation I have performed the following: I have examined & evaluated the patient, The case was reviewed & discussed with the resident, I agree w/resident's findings & plan, Exceptions are as noted - HPI HPI: 01/27/18 14:13 42y M from [facility] hx of polysubstance abuse presents with rash. Pt ntoes he was started on bactrim for some redness on his hand (from prior IVDU) a few days ago, yesterday he noted some redness and itching to his L hand between his thumb and index finger, today he noticed itching and the same rash on his penis and scrotum. he denies any fever/chlls, n/v, pain. pt denies using any new lotions, creams. he notes he did have this many years ago in the same places after getting penicillin in the past. he denies any dysruia, hematuria, penile discharge. last sexual activity was 7 months ago. pt also endorses mild swellling and tingling onhis upper lip. denies any sob, voice changes, cp, sob, abd pain. - Physicial Exam PE: 01/27/18 14:55 GENERAL: The patient is awake, alert, and fully oriented, Nontoxic - in no acute distress. HEAD: Normocephalic, atraumatic. EYES: extraocular movements intact, sclera anicteric, conjunctiva clear. ENT: Normal voice, Moist mucous membranes. NECK: Normal range of motion, supple. ABDOMEN: Soft, nontender, . No guarding, no rebound. No CVA tenderness NEUROLOGICAL: No facial assymetry, Normal speech, moving all 4 extremities spontaneously and symemtrically PSYCH: Normal mood, normal affect. SKIN: skin between thumb/index finger on L hand - erythema with vesicular lesions, neg nikolsky, no tenderness on palpations penis: dorsal tip of penis, L lateral aspect of scrotum, opposing skin on inferior buttock - erythema/vesicular lesions, not tender to palpation, not hot to touch, - Medical Decision Making 01/27/18 14:58 suspect allergic reaction vs contact dermatitis no signs of celluitis will get a CBC will give prednisone, benadryl for itching outpatient derm fu 01/27/18 16:22 pt feling improved no leukocytosis will dc [facility] with [facility] fu return precautions were dsicussed
[2018-01-27] MEDS ORDERED: diphenhydrAMINE HCL 25 MG CAPSULE (FP) PO ONE ×2 (14:41→14:48)
[2018-01-27] MEDS ORDERED: predniSONE 20 MG TABLET (UD) PO ONE (14:41)
[2018-01-27] MEDS ORDERED: predniSONE 20 MG TABLET (UD) ONE (14:47)
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
[2018-01-27 15:20] LABS: BASO % 0.3 % (0-2.0); EOS % 1.8 % (0-4.5); HEMATOCRIT 39.3 % (35.4-49); HEMOGLOBIN 13.6 GM/dL (11.7-16.9); LYMPH % 40.9 % (8-40); MCH 30.5 pg (25.7-33.7); MCHC 34.6 g/dl (32.0-35.9); MEAN CELL VOLUME 88.1 fl (80-96); MEAN PLT VOLUME 9.4 fl (7.5-11.1); PLATELET COUNT 194 K/MM3 (134-434); RBC 4.46 M/mm3 (4.00-5.60); RDW 15.1 % (11.9-15.9); WHITE BLOOD COUNT 4.4 K/mm3 (4.0-10.0)
[2018-01-27 19:03] VITALS: BP 139/78; PULSE 68
== END 2018-01-27 19:03 | disposition home or self-care (01) ==
LOC: JER 13:05
DX: L30.9 Dermatitis, unspecified (principal); F19.10 Other psychoactive substance abuse, uncomplicated; B19.20 Unspecified viral hepatitis C without hepatic coma
CPT/HCPCS: 36415; 85025; 99282-25

== ENCOUNTER 2019-12-27 09:48 | Inpatient (IN) | payer OTHER ==
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
[2019-12-27 11:21] LABS: BASO % 0.8 % (0-2.0); EOS % 1.9 % (0-4.5); HEMATOCRIT 34.3 % (35.4-49); HEMOGLOBIN 11.5 GM/dL (11.7-16.9); LYMPH % 31.9 % (8-40); MCH 28.4 pg (25.7-33.7); MCHC 33.5 g/dl (32.0-35.9); MEAN CELL VOLUME 84.9 fl (80-96); MEAN PLT VOLUME 9.4 fl (7.5-11.1); MONO % 12.9 % (3.8-10.2); NEUT % 52.5 % (42.8-82.8); PLATELET COUNT 204 K/MM3 (134-434); RBC 4.04 M/mm3 (4.00-5.60); RDW 13.8 % (11.9-15.9); WHITE BLOOD COUNT 5.5 K/mm3 (4.0-10.0)
[2019-12-27 11:27] LABS: INR 1.15 (0.83-1.09); PROTHROMBIN TIME (PATIENT) 13.6 SEC (9.7-13.0)
[2019-12-27 11:29] LABS: ACTIVATED PTT 33.9 SECONDS (25.2-36.5)
[2019-12-27 11:54] LABS: ALBUMIN 3.5 g/dl (3.4-5.0); ALK PHOS 88 U/L (45-117); ANION GAP 5 MMOL/L (8-16); BILIRUBIN,TOTAL 0.4 mg/dL (0.2-1); BLOOD UREA NITROGEN 10.9 mg/dL (7-18); CALCIUM 8.9 mg/dL (8.5-10.1); CHLORIDE 103 mmol/L (98-107); CO2 31 mmol/L (21-32); CREATININE 0.9 mg/dL (0.55-1.3); GLUCOSE,RANDOM 106 mg/dL (74-106); POTASSIUM 3.8 mmol/L (3.5-5.1); SGOT/AST 20 U/L (15-37); SGPT/ALT 12 U/L (13-61); SODIUM 138 mmol/L (136-145); TOT PROT 7.1 g/dl (6.4-8.2)
--- NOTE | 2019-12-27 12:24 | PDOC ---
Documentation entered by Estefanía Carrera SCRIBE, acting as scribe for Katiuska Trotter MD. Katiuska Trotter MD: This documentation has been prepared by the Deandre oneill Xhesika, SCRIBE, under my direction and personally reviewed by me in its entirety. I confirm that the documentation accurately reflects all work, treatment, procedures, and medical decision making performed by me. Attending Attestation - Resident Resident Name: NathalieCourtney - ED Attending Attestation I have performed the following: I have examined & evaluated the patient, The case was reviewed & discussed with the resident, I agree w/resident's findings & plan, Exceptions are as noted - HPI HPI: 12/27/19 11:07 The patient is a 44y/o M with a PMH of polysubstance abuse, heroin and meth, hepC (untreated), and syphilis who presents to the ED from [facility] with R arm edema and erythema s/p using cocaine. The patient a poor historian and unable to contribute to further history. Allergies: PCN - Physicial Exam PE: GENERAL: Somnolent, awakens to voice and answers questions. HEAD: No signs of trauma EYES: PERRLA, EOMI, sclera anicteric, conjunctiva clear ENT: Auricles normal inspection, hearing grossly normal, nares patent, oropharynx clear without exudates. Moist mucosa NECK: Normal ROM, supple, no lymphadenopathy, JVD, or masses LUNGS: Breath sounds equal, clear to auscultation bilaterally. No wheezes, and no crackles HEART: Regular rate and rhythm, normal S1 and S2, no murmurs, rubs or gallops ABDOMEN: Soft, nontender, normoactive bowel sounds. No guarding, no rebound. No masses EXTREMITIES: L forearm with multiple indurated, erythematous areas. No fluctuance, no open lesions. remainder of extremities with normal range of motion, no edema. No clubbing or cyanosis. No cords, erythema, or tenderness NEUROLOGICAL: Limited by AMS. Moving all extremities. No gross deficits SKIN: Warm, dry, normal turgor. +Multiple track mcwilliams to L arm, overlying L EJV - Medical Decision Making Pt presents with cellulitis to multiple sites on L arm, likely secondary to skin popping. Will give IV abx, plan for admission. Discharge - Discharge Information Problems reviewed: Yes Clinical Impression/Diagnosis: Wound cellulitis - Follow up/Referral - Patient Discharge Instructions - Post Discharge Activity
[2019-12-27] MEDS ORDERED: CLINDAMYCIN 600MG PREMIX IVPB 600 MG/50 ML BAG IVPB ONE ×2 (12:51→12:59)
[2019-12-27] MEDS ORDERED: ALBUTEROL SO4 HFA INHALER IH PRN (13:05)
[2019-12-27] MEDS ORDERED: ACETAMINOPHEN 325 MG TABLET (FP) PO PRN (13:05)
--- NOTE | 2019-12-27 15:05 | HP ---
CHIEF COMPLAINT:arm redness PCP:[facility] HISTORY OF PRESENT ILLNESS: 44 yo man with a PMH of polysubstance abuse IV injection of cocaine, heroin and meth, hepC (untreated), h/o treated syphilis who presents from [facility] after shooting cocaine and using methadone this AM and was found to have R arm swellin g and erythema. The patient is intoxicated and cannot provide full history, he endorses arm pain but has no other symptoms. No fevers as reported by patient and [facility]. ER course was notable for: (1)no white cell count (2) (3) Recent Travel: none PAST MEDICAL HISTORY:hep c and h/o syphilis PAST SURGICAL HISTORY:he doesnt remember Social History: Smoking:yes Alcohol:yes Drugs: yes Allergies Penicillins Allergy (Severe, Verified 12/27/19 10:22) Fish Containing Products Allergy (Mild, Verified 12/27/19 10:22) HOME MEDICATIONS: Home Medications Medication Instructions Recorded Methadone [Dolophine -] 0 mg PO DAILY 01/27/18 Albuterol Sulfate Inhaler - 2 puff IH Q4H PRN #1 inhaler 01/29/18 [Ventolin HFA Inhaler -] Diphenhydramine HCl [Benadryl -] 25 mg PO Q6H PRN #12 capsule 01/29/18 Diphenhydramine HCl [Benadryl 25 mg PO Q6H PRN #12 capsule 01/29/18 Capsule -] Hydrocortisone 0.5% Cream [Hytone 1 applic TP BID #1 tube 01/29/18 0.5% Cream -] Prednisone 5 mg PO DAILY #1 tab.ds.pk 01/29/18 Prednisone 10 mg PO DAILY #1 tab.ds.pk 01/29/18 predniSONE [Deltasone] 20 mg PO DAILY #1 tablet 01/29/18 ROS GENERAL/CONSTITUTIONAL: No fever or chills. No weakness. HEAD, EYES, EARS, NOSE AND THROAT: No change in vision. No ear pain or discharge. No sore throat. CARDIOVASCULAR: No chest pain or shortness of breath RESPIRATORY: No cough, wheezing, or hemoptysis. GASTROINTESTINAL: No nausea, vomiting, diarrhea or constipation. GENITOURINARY: No dysuria, frequency, or change in urination. MUSCULOSKELETAL: No joint or muscle swelling or pain. No neck or back pain. SKIN: Redness on the left arm NEUROLOGIC: No headache, vertigo, loss of consciousness, or change in strength/sensation. ENDOCRINE: No increased thirst. No abnormal weight change HEMATOLOGIC/LYMPHATIC: No anemia, easy bleeding, or history of blood clots. ALLERGIC/IMMUNOLOGIC: No hives or skin allergy. PHYSICAL EXAMINATION Vital Signs - 24 hr 12/27/19 09:50 Temperature 97.8 F Pulse Rate 90 Respiratory 16 Rate Blood Pressure 124/76 O2 Sat by Pulse 100 Oximetry (%) GENERAL: Awake, alert, and fully oriented, in no acute distress HEAD: No signs of trauma, normocephalic, atraumatic EYES: PERRLA, EOMI, sclera anicteric, conjunctiva clear ENT: Auricles normal inspection, hearing grossly normal, nares patent, oropharynx clear without exudates. Moist mucosa NECK: Normal ROM, supple, no lymphadenopathy, JVD, or masses LUNGS: No distress, speaks full sentences, clear to auscultation bilaterally HEART: Regular rate and rhythm, normal S1 and S2, no murmurs, rubs or gallops, peripheral pulses normal and equal bilaterally. ABDOMEN: Soft, nontender, normoactive bowel sounds. No guarding, no rebound. No masses EXTREMITIES : Normal inspection, Normal range of motion, no edema. No clubbing or cyanosis. NEUROLOGICAL: Cranial nerves II through XII grossly intact. Normal speech, normal gait, no focal sensorimotor deficits SKIN: He has diffuse skin tattoos. And have cellulitis on the left arm Laboratory Results - last 24 hr 12/27/19 12/27/19 12/27/19 10:57 10:57 10:57 WBC RBC Hgb Hct MCV MCH MCHC RDW Plt Count MPV Absolute Neuts (auto) Neutrophils % Lymphocytes % Monocytes % Eosinophils % Basophils % Nucleated RBC % PT with INR 13.60 H INR 1.15 H PTT (Actin FS) 33.9 Sodium 138 Potassium 3.8 Chloride 103 Carbon Dioxide 31 Anion Gap 5 L BUN 10.9 Creatinine 0.9 Est GFR (CKD-EPI)AfAm 120.81 Est GFR (CKD-EPI)NonAf 104.24 POC Glucometer Random Glucose 106 Calcium 8.9 Total Bilirubin 0.4 AST 20 ALT 12 L Alkaline Phosphatase 88 Total Protein 7.1 Albumin 3.5 Salicylates < 1.7 L Acetaminophen <2.0 Alcohol, Quantitative < 3 12/27/19 12/27/19 10:57 14:50 WBC 5.5 RBC 4.04 Hgb 11.5 L Hct 34.3 L MCV 84.9 MCH 28.4 MCHC 33.5 RDW 13.8 Plt Count 204 MPV 9.4 Absolute Neuts (auto) 2.9 Neutrophils % 52.5 Lymphocytes % 31.9 D Monocytes % 12.9 H Eosinophils % 1.9 Basophils % 0.8 Nucleated RBC % 0 PT with INR INR PTT (Actin FS) Sodium Potassium Chloride Carbon Dioxide Anion Gap BUN Creatinine Est GFR (CKD-EPI)AfAm Est GFR (CKD-EPI)NonAf POC Glucometer 71 Random Glucose Calcium Total Bilirubin AST ALT Alkaline Phosphatase Total Protein Albumin Salicylates Acetaminophen Alcohol, Quantitative ASSESSMENT/PLAN: 44 yo man with a PMH of polysubstance abuse IV injection of cocaine, heroin and meth, hepC (untreated), h/o treated syphilis who presents from [facility] after shooting cocaine and using methadone this AM and was found to have R arm swelling and erythema Plan start on iv levaquin due to pen allergy drug rehab consult. regular diet Methadone 180 mg once a day has to be confirmed with the methadone program. Visit type - Emergency Visit Emergency Visit: Yes ED Registration Date: 12/27/19 Care time: The patient presented to the Emergency Department on the above date and was hospitalized for further evaluation of their emergent condition. - New Patient This patient is new to me today: Yes Date on this admission: 12/27/19 - Critical Care Critical Care patient: No
[2019-12-27 15:58] LABS: ALBUMIN 3.3 g/dl (3.4-5.0); BILIRUBIN,TOTAL 0.6 mg/dL (0.2-1); BLOOD UREA NITROGEN 10.7 mg/dL (7-18); CALCIUM 8.4 mg/dL (8.5-10.1); CREATININE 0.8 mg/dL (0.55-1.3); POTASSIUM 3.8 mmol/L (3.5-5.1); TOT PROT 6.9 g/dl (6.4-8.2)
[2019-12-27 20:33] VITALS: BMI 33.5
[2019-12-28] MEDS ORDERED: METHADONE HCL 40 MG DISPERSABLE TABLET ONE (05:12)
[2019-12-28] MEDS ORDERED: METHADONE HCL 10 MG TABLET ONE (05:12)
[2019-12-28] MEDS ORDERED: METHADONE 160 MG, METHADONE 20 MG PO SCH (06:00)
[2019-12-28 06:16] LABS: URINE AMPHETAMINES NEGATIVE ng/ml (CUTOFF=500); URINE BARBITURATES NEGATIVE ng/ml (CUTOFF=200)
[2019-12-28 06:19] LABS: COCAINE, UR POSITIVE ng/ml (CUTOFF=300); METHADONE, UR POSITIVE ng/ml (CUTOFF=300); OPIATES, URI POSITIVE ng/ml (CUTOFF=300); PHENCYCLIDINE,URINE POSITIVE ng/ml (CUTOFF=25); URINE BENZODIAZEPINES POSITIVE ng/ml (CUTOFF=200)
--- NOTE | 2019-12-28 09:51 | CONSULT ---
Consult Detox [facility] Reason for Current Admission/Consult: Polysubstance use: crack cocaine, heroin, ketamine on methadone maintenence Referred by:: Dr. Vladislav Santizo - History History of Present Illness: Mr. Mehta is a 44 yo gentleman who presented to [facility] yesterday, December 25 for detox admission. He was found to have right arm swelling and was referred to [facility] where he has been admitted and dx with cellulitis. He has been started on Clindamycin and Levofloxacin as he is Pen allergic. PMH: Hep C, syphilis SoC: smoker Substance Use & Tx History - Substance Use History Cocaine-Crack Substance amount: 500 Frequency of use: Daily Substance route: Injection (ex: intravenous or skin popping) Heroin Substance amount: 1 gr Frequency of use: Daily Substance route: Injection (ex: intravenous or skin popping) Ketamine Frequency of use: Daily Substance route: Inhalation (ex: sniffing or snorting) - Last Treatment Where was last treatment: Opioid Treatment Program (OTP) (180 mg MMTP x 3 years . referred by ishaan 2/2 drug use and testing + recently , pt reports his use significantly increased since August 2019 as no more UDS testing was done 2/2 COVID restrictions .) Laboratory Results - last 24 hr 12/27/19 12/27/19 12/27/19 10:57 10:57 10:57 WBC RBC Hgb Hct MCV MCH MCHC RDW Plt Count MPV Absolute Neuts (auto) Neutrophils % Lymphocytes % Monocytes % Eosinophils % Basophils % Nucleated RBC % PT with INR 13.60 H INR 1.15 H PTT (Actin FS) 33.9 Sodium 138 Potassium 3.8 Chloride 103 Carbon Dioxide 31 Anion Gap 5 L BUN 10.9 Creatinine 0.9 Est GFR (CKD-EPI)AfAm 120.81 Est GFR (CKD-EPI)NonAf 104.24 POC Glucometer Random Glucose 106 Calcium 8.9 Total Bilirubin 0.4 AST 20 ALT 12 L Alkaline Phosphatase 88 Total Protein 7.1 Albumin 3.5 Salicylates < 1.7 L Opiates Screen Methadone Screen Acetaminophen <2.0 Barbiturate Screen Phencyclidine Screen Ur Amphetamines Screen MDMA (Ecstasy) Screen Benzodiazepines Screen Cocaine Screen U Marijuana (THC) Screen Alcohol, Quantitative < 3 12/27/19 12/27/19 12/27/19 10:57 14:50 14:50 WBC 5.5 RBC 4.04 Hgb 11.5 L Hct 34.3 L MCV 84.9 MCH 28.4 MCHC 33.5 RDW 13.8 Plt Count 204 MPV 9.4 Absolute Neuts (auto) 2.9 Neutrophils % 52.5 Lymphocytes % 31.9 D Monocytes % 12.9 H Eosinophils % 1.9 Basophils % 0.8 Nucleated RBC % 0 PT with INR INR PTT (Actin FS) Sodium 141 Potassium 3.8 Chloride 104 Carbon Dioxide 28 Anion Gap 9 BUN 10.7 Creatinine 0.8 Est GFR (CKD-EPI)AfAm 126.81 Est GFR (CKD-EPI)NonAf 109.41 POC Glucometer 71 Random Glucose 89 Calcium 8.4 L Total Bilirubin 0.6 AST 13 L ALT 12 L Alkaline Phosphatase 89 Total Protein 6.9 Albumin 3.3 L Salicylates Opiates Screen Methadone Screen Acetaminophen Barbiturate Screen Phencyclidine Screen Ur Amphetamines Screen MDMA (Ecstasy) Screen Benzodiazepines Screen Cocaine Screen U Marijuana (THC) Screen Alcohol, Quantitative 12/28/19 04:00 WBC RBC Hgb Hct MCV MCH MCHC RDW Plt Count MPV Absolute Neuts (auto) Neutrophils % Lymphocytes % Monocytes % Eosinophils % Basophils % Nucleated RBC % PT with INR INR PTT (Actin FS) Sodium Potassium Chloride Carbon Dioxide Anion Gap BUN Creatinine Est GFR (CKD-EPI)AfAm Est GFR (CKD-EPI)NonAf POC Glucometer Random Glucose Calcium Total Bilirubin AST ALT Alkaline Phosphatase Total Protein Albumin Salicylates Opiates Screen Positive A* Methadone Screen Positive A* Acetaminophen Barbiturate Screen Negative Phencyclidine Screen Positive A* Ur Amphetamines Screen Negative MDMA (Ecstasy) Screen Negative Benzodiazepines Screen Positive A* Cocaine Screen Positive A* U Marijuana (THC) Screen Negative Alcohol, Quantitative Home Medication List Medication Instructions Recorded Confirmed Type Methadone [Dolophine -] 0 mg PO DAILY 01/27/18 01/27/18 History Active Medications Generic Name Dose Route Start Last Admin Trade Name Freq PRN Reason Stop Dose Admin Acetaminophen 650 mg 12/27/19 13:05 12/28/19 01:49 Tylenol - PO 650 mg Q6H PRN Administration PAIN Albuterol Sulfate 2 puff 12/27/19 13:05 Ventolin Hfa Inhaler - IH Q4H PRN ASTHMA Enoxaparin Sodium 40 mg 12/28/19 10:00 Lovenox - SQ DAILY [facility] Methadone HCl 160 mg/ 180 mg 12/28/19 06:00 12/28/19 05:24 Methadone HCl 20 mg PO 180 mg DAILY@0600 [facility] Administration Vital Signs (72 hours) 12/27/19 12/27/19 12/27/19 09:50 10:08 15:00 Temperature 97.8 F 98.1 F Pulse Rate 90 Pulse Rate [ 65 Left Radial] Respiratory 16 20 Rate Blood Pressure 124/76 Blood Pressure 148/72 [Left Arm] O2 Sat by Pulse 100 96 96 Oximetry (%) 12/27/19 12/27/19 12/27/19 18:29 18:49 19:31 Temperature 97.6 F 98 F Pulse Rate 68 76 Pulse Rate [ Left Radial] Respiratory 20 20 Rate Blood Pressure 122/80 120/80 Blood Pressure [Left Arm] O2 Sat by Pulse 96 Oximetry (%) 12/27/19 12/27/19 12/28/19 20:27 21:00 02:00 Temperature 97.5 F L 97.7 F Pulse Rate 61 76 Pulse Rate [ Left Radial] Respiratory 18 18 18 Rate Blood Pressure 120/71 140/74 Blood Pressure [Left Arm] O2 Sat by Pulse 96 Oximetry (%) 12/28/19 05:35 Temperature 97.8 F Pulse Rate 64 Pulse Rate [ Left Radial] Respiratory 18 Rate Blood Pressure 138/83 Blood Pressure [Left Arm] O2 Sat by Pulse Oximetry (%) - History Source History Provided By: Medical Record - Alcohol/Substance Use Hx Alcohol Use: Yes Hx Substance Use: Yes Hx Substance Use Treatment: Yes - Current Drug/Alcohol Use Heroin Route: Injection Frequency: Daily Amount used: one gram Assessment Plan - Diagnosis (1) Cocaine dependence Status: Acute Qualifiers: Substance use status: uncomplicated Qualified Code(s): F14.20 - Cocaine dependence, uncomplicated (2) Opioid dependence on agonist therapy Status: Acute - Medication Detox Regimen/Protocol: Methadone (Spoke to ANISHA Gill, need Methadone dose verified. Dr. Santizo has ordered daily methadone and patient has had today's dose. Await verification at this time. Will add orders for comfort medication. )
[2019-12-28 09:54] LABS: BASO % 0.6 % (0-2.0); EOS % 2.4 % (0-4.5); HEMATOCRIT 35.2 % (35.4-49); HEMOGLOBIN 11.6 GM/dL (11.7-16.9); LYMPH % 46.8 % (8-40); MCH 27.9 pg (25.7-33.7); MCHC 32.9 g/dl (32.0-35.9); MEAN CELL VOLUME 84.7 fl (80-96); MEAN PLT VOLUME 9.3 fl (7.5-11.1); MONO % 11.6 % (3.8-10.2); NEUT % 38.6 % (42.8-82.8); PLATELET COUNT 191 K/MM3 (134-434); RBC 4.16 M/mm3 (4.00-5.60); RDW 13.9 % (11.9-15.9); WHITE BLOOD COUNT 4.6 K/mm3 (4.0-10.0)
[2019-12-28] MEDS ORDERED: METHADONE HCL 10 MG TABLET (FOR DETOX USE ONLY) PO SCH (10:00)
[2019-12-28] MEDS ORDERED: MAGNESIUM CITRATE 300 ML BOTTLE PO PRN (10:03)
[2019-12-28] MEDS ORDERED: MAGNESIUM HYDROX 2400MG/30ML ORAL SUSPENSION 30 ML CUP PO PRN (10:03)
[2019-12-28] MEDS ORDERED: ONDANSETRON *ODT* 4 MG TABLET SL PRN (10:03)
[2019-12-28] MEDS ORDERED: MAG HYDROX/AL HYDROX/SIMETH 30 ML UNIT-DOSE CUP PO PRN (10:03)
[2019-12-28] MEDS ORDERED: METHOCARBAMOL 500 MG TABLET PO PRN (10:03)
[2019-12-28] MEDS ORDERED: BISMUTH SUBSALICYLATE 524 MG/30 ML UD PO PRN (10:03)
[2019-12-28] MEDS ORDERED: ACETAMINOPHEN 325 MG TABLET (FP) PO PRN ×2 (10:03)
[2019-12-28] MEDS ORDERED: IBUPROFEN 400 MG TABLET (FP) PO PRN (10:03)
[2019-12-28] MEDS ORDERED: MENTHOL/PHENOL 1 EACH UD MM PRN (10:03)
[2019-12-28] MEDS: ENOXAPARIN NA (PORCINE) 40 MG/0.4 ML DISP.SYRIN SQ SCH (10:31)
[2019-12-28] MEDS: CLINDAMYCIN 600MG PREMIX IVPB 600 MG/50 ML BAG IVPB SCH ×2 (11:58→14:28)
[2019-12-28] MEDS ORDERED: METHOCARBAMOL 500 MG TABLET PO SCH (14:00)
[2019-12-28] MEDS: hydrOXYzine PAMOATE 25 MG CAPSULE (FP) PO SCH ×3 (14:27→21:42)
[2019-12-28] MEDS: METHOCARBAMOL 500 MG TABLET PO SCH ×2 (14:27→21:41)
[2019-12-28] MEDS ORDERED: PT OWN MED DRAWER 7, Y5N ONE (17:29)
--- NOTE | 2019-12-28 17:53 | CON.ID ---
Consult - History of Present Illness History of Present Illness: 44 y.o. male with PMH of Polysubstance abuse, active IVDU of heroin, cocaine, meth, Syphilis treated, Hep C (treated as per patient), presents with LUE ed yareli/pain/warmth in region of injection site x 2 days. Denies fever/chills as well as SOB, CP, abd pain/n/v/d, dysuria, CANCINO, focal neurologic deficits. He has no other complaints. In ER, pt noted to be afebrile with stable vitals but intoxicated. Pain noted with palpation of dorsal aspect of arm with palpation but without significantly less ROM. Currently sitting in bed eating, fully alert, eating. - History Source History Provided By: Patient Limitations to Obtaining History: No Limitations - Past Medical History [employer]: No: Alzheimer's, CVA, Dementia, Migraine, Multiple Sclerosis, Peripheral Neuropathy, Parkinson's, Seizure, Syncope, TIA, Vertigo, Other Cardio/Vascular: No: AFIB, Aneurysm, Aortic Insufficiency, Aortic Stenosis, CAD, CHF, Deep Vein Thrombosis, HTN, Hyperlipdemia, [place], Mitral Insufficiency, Mitral Stenosis, Murmur, Pulmonary Hypertension, Other Pulmonary: No: Asthma, Bronchitis, Cancer, COPD, O2 Dependent, Pneumonia, Pre viously Intubated, Pulmonary Embolus, Pulmonary Fibrosis, Sleep Apnea, Other Gastrointestinal: No: Ascites, Cancer, Constipation, Crohn's Disease, Diverticulitis, Diverticulosis, Esophageal Varices, Gastritis, GERD, GI Bleed, Hemorrhoids, Hiatal Hernia, Inflamatory Bowel Disease, Irritable Bowel Disease, Pancreatitis, Peptic Ulcer Disease, Ulcerative Colitis, Other Hepatobiliary: Yes: Hepatitis C (? treated, HIV negative 3 months ago as per pt) Psych: Yes: Addictions - Alcohol/Substance Use Hx Alcohol Use: Yes History of Substance Use: reports: Cocaine, Heroin - Smoking History Smoking history: Unknown if ever smoked Have you smoked in the past 12 months: Yes Aproximately how many cigarettes per day: 20 - Social History Usual Living Arrangement: Alone Home Medications - Allergies Allergies/Adverse Reactions: Allergies Allergy/AdvReac Type Severity Reaction Status Date / Time Penicillins Allergy Severe Verified 12/27/19 10:22 Fish Containing Products Allergy Mild Verified 12/27/19 10:22 - Home Medications Home Medications: Ambulatory Orders Methadone [Dolophine -] 0 mg PO DAILY 01/27/18 Albuterol Sulfate Inhaler - [Ventolin HFA Inhaler -] 2 puff IH Q4H PRN #1 inhaler 01/29/18 Diphenhydramine HCl [Benadryl -] 25 mg PO Q6H PRN #12 capsule 01/29/18 Diphenhydramine HCl [Benadryl Capsule -] 25 mg PO Q6H PRN #12 capsule 01/29/18 Hydrocortisone 0.5% Cream [Hytone 0.5% Cream -] 1 applic TP BID #1 tube 01/29/18 Prednisone 5 mg PO DAILY #1 tab.ds.pk 01/29/18 Prednisone 10 mg PO DAILY #1 tab.ds.pk 01/29/18 predniSONE [Deltasone] 20 mg PO DAILY #1 tablet 01/29/18 Review of Systems - Review of Systems Constitutional: reports: No Symptoms Eyes: reports: No Symptoms HENT: reports: No Symptoms Neck: reports: No Symptoms Cardiovascular: reports: No Symptoms Respiratory: reports: No Symptoms Gastrointestinal: reports: No Symptoms Genitourinary: reports: No Symptoms Integumentary: reports: Erythema, Other (LUE extending from dorsal forearm to upper arm swelling/pain) Neurological: reports: No Symptoms Endocrine: reports: No Symptoms Hematology/Lymphatic: reports: No Symptoms Psychiatric: reports: No Symptoms Physical Exam Vital Signs: Vital Signs Temperature 97.6 F 12/28/19 15:33 Pulse Rate 66 12/28/19 15:33 Respiratory Rate 18 12/28/19 15:33 Blood Pressure 122/74 12/28/19 15:33 O2 Sat by Pulse Oximetry (%) 95 12/28/19 14:00 Constitutional: Yes: No Distress, Calm Eyes: Yes: Conjunctiva Clear HENT: Yes: Atraumatic Neck: Yes: Supple Cardiovascular: Yes: Regular Rate and Rhythm Respiratory: Yes: CTA Bilaterally Gastrointestinal: Yes: Normal Bowel Sounds, Soft Extremities: Yes: Erythema, Other (LUE edema/warmth/tenderness/erythema extending from dorsal forearm to upper arm, no fluctuance/draining wound, no olectranon edema) Edema: LUE: 1+ Neurological: Yes: Alert, Oriented Psychiatric: Yes: Alert Labs: CBC, BMP 12/28/19 09:15 12/27/19 14:50 Laboratory Tests 12/27/19 12/27/19 12/27/19 10:57 10:57 10:57 WBC RBC Hgb Hct MCV MCH MCHC RDW Plt Count MPV Absolute Neuts (auto) Neutrophils % Lymphocytes % Monocytes % Eosinophils % Basophils % Nucleated RBC % PT with INR 13.60 H INR 1.15 H PTT (Actin FS) 33.9 Sodium 138 Potassium 3.8 Chloride 103 Carbon Dioxide 31 Anion Gap 5 L BUN 10.9 Creatinine 0.9 Est GFR (CKD-EPI)AfAm 120.81 Est GFR (CKD-EPI)NonAf 104.24 POC Glucometer Random Glucose 106 Calcium 8.9 Total Bilirubin 0.4 AST 20 ALT 12 L Alkaline Phosphatase 88 Total Protein 7.1 Albumin 3.5 Salicylates < 1.7 L Opiates Screen Methadone Screen Acetaminophen <2.0 Barbiturate Screen Phencyclidine Screen Ur Amphetamines Screen MDMA (Ecstasy) Screen Benzodiazepines Screen Cocaine Screen U Marijuana (THC) Screen Alcohol, Quantitative < 3 12/27/19 12/27/19 12/27/19 10:57 14:50 14:50 WBC 5.5 RBC 4.04 Hgb 11.5 L Hct 34.3 L MCV 84.9 MCH 28.4 MCHC 33.5 RDW 13.8 Plt Count 204 MPV 9.4 Absolute Neuts (auto) 2.9 Neutrophils % 52.5 Lymphocytes % 31.9 D Monocytes % 12.9 H Eosinophils % 1.9 Basophils % 0.8 Nucleated RBC % 0 PT with INR INR PTT (Actin FS) Sodium 141 Potassium 3.8 Chloride 104 Carbon Dioxide 28 Anion Gap 9 BUN 10.7 Creatinine 0.8 Est GFR (CKD-EPI)AfAm 126.81 Est GFR (CKD-EPI)NonAf 109.41 POC Glucometer 71 Random Glucose 89 Calcium 8.4 L Total Bilirubin 0.6 AST 13 L ALT 12 L Alkaline Phosphatase 89 Total Protein 6.9 Albumin 3.3 L Salicylates Opiates Screen Methadone Screen Acetaminophen Barbiturate Screen Phencyclidine Screen Ur Amphetamines Screen MDMA (Ecstasy) Screen Benzodiazepines Screen Cocaine Screen U Marijuana (THC) Screen Alcohol, Quantitative 12/28/19 12/28/19 04:00 09:15 WBC 4.6 RBC 4.16 Hgb 11.6 L Hct 35.2 L MCV 84.7 MCH 27.9 MCHC 32.9 RDW 13.9 Plt Count 191 MPV 9.3 Absolute Neuts (auto) 1.8 Neutrophils % 38.6 L D Lymphocytes % 46.8 H D Monocytes % 11.6 H Eosinophils % 2.4 Basophils % 0.6 Nucleated RBC % 0 PT with INR INR PTT (Actin FS) Sodium Potassium Chloride Carbon Dioxide Anion Gap BUN Creatinine Est GFR (CKD-EPI)AfAm Est GFR (CKD-EPI)NonAf POC Glucometer Random Glucose Calcium Total Bilirubin AST ALT Alkaline Phosphatase Total Protein Albumin Salicylates Opiates Screen Positive A* Methadone Screen Positive A* Acetaminophen Barbiturate Screen Negative Phencyclidine Screen Positive A* Ur Amphetamines Screen Negative MDMA (Ecstasy) Screen Negative Benzodiazepines Screen Positive A* Cocaine Screen Positive A* U Marijuana (THC) Screen Negative Alcohol, Quantitative Microbiology 12/27/19 10:57 Blood - Peripheral Venous Blood Culture - Preliminary NO GROWTH OBTAINED AFTER 24 HOURS, INCUBATION TO CONTINUE FOR 4 DAYS. 12/27/19 10:57 Blood - Peripheral Venous Blood Culture - Preliminary NO GROWTH OBTAINED AFTER 24 HOURS, INCUBATION TO CONTINUE FOR 4 DAYS. Imaging - Results Chest X-ray: Report Reviewed Problem List - Problems (1) Wound cellulitis Code(s): L03.90 - CELLULITIS, UNSPECIFIED (2) Cocaine dependence Code(s): F14.20 - COCAINE DEPENDENCE, UNCOMPLICATED Qualifiers: Substance use status: uncomplicated Qualified Code(s): F14.20 - Cocaine dependence, uncomplicated (3) Alcohol dependence with uncomplicated withdrawal Code(s): F10.230 - ALCOHOL DEPENDENCE WITH WITHDRAWAL, UNCOMPLICATED (4) Hepatitis C Code(s): B19.20 - UNSPECIFIED VIRAL HEPATITIS C WITHOUT HEPATIC COMA Qualifiers: Viral hepatitis chronicity: chronic Hepatic coma status: without hepatic coma Qualified Code(s): B18.2 - Chronic viral hepatitis C Assessment/Plan 44 y.o. male with PMH of Polysubstance abuse, active IVDU of heroin, cocaine, meth, Syphilis treated, Hep C (treated as per patient), presents with LUE edema/pain/warmth in region of injection site x 2 days LUE cellulitis IVDU Polysubstance abuse ETOH abuse Hep C - ? treated -- continue Clindamycin for now -- monitor for improvement, if none then will switch to Vancomycin and suggest MRI -- blood cultures neg 24hr -- detox Will follow up Thank you
--- NOTE | 2019-12-28 18:38 | PN ---
Physical Exam: SUBJECTIVE: Patient seen and examined OBJECTIVE: Vital Signs Period Temp Pulse Resp BP Sys/Rossi Pulse Ox Last 24 Hr 97.5 F-98 F 60-76 15-20 110-140/71-83 95-96 GENERAL: tired appearing, track mcwilliams throughout, disheveled appearance, unkempt HEENT nC/AT, EOMI, neck supple, dry MM LUNGS: CTAB, no crackles or wheezing HEART: Regular rate and rhythm, S1, S2 without murmur, rub or gallop. ABDOMEN: Soft, nontender, nondistended, normoactive bowel sounds, no guarding, no rebound, no hepatosplenomegaly, no masses. EXTREMITIES: 2+ pulses, warm, well-perfused, track mcwilliams throughout, R wrist swelling NEUROLOGICAL: Cranial nerves II through XII grossly intact. Normal speech, gait not observed. PSYCH: Normal mood, normal affect. SKIN: Warm, dry, normal turgor, no rashes or lesions noted Laboratory Results - last 24 hr 12/28/19 12/28/19 04:00 09:15 WBC 4.6 RBC 4.16 Hgb 11.6 L Hct 35.2 L MCV 84.7 MCH 27.9 MCHC 32.9 RDW 13.9 Plt Count 191 MPV 9.3 Absolute Neuts (auto) 1.8 Neutrophils % 38.6 L D Lymphocytes % 46.8 H D Monocytes % 11.6 H Eosinophils % 2.4 Basophils % 0.6 Nucleated RBC % 0 Opiates Screen Positive A* Methadone Screen Positive A* Barbiturate Screen Negative Phencyclidine Screen Positive A* Ur Amphetamines Screen Negative MDMA (Ecstasy) Screen Negative Benzodiazepines Screen Positive A* Cocaine Screen Positive A* U Marijuana (THC) Screen Negative Active Medications Generic Name Dose Route Start Last Admin Trade Name Freq PRN Reason Stop Dose Admin Acetaminophen 650 mg 12/27/19 13:05 12/28/19 01:49 Tylenol - PO 650 mg Q6H PRN Administration PAIN Al Hydroxide/Mg Hydroxide 30 ml 12/28/19 10:03 Mylanta Oral Suspension - PO Q6H PRN DYSPEPSIA Albuterol Sulfate 2 puff 12/27/19 13:05 Ventolin Hfa Inhaler - IH Q4H PRN ASTHMA Bismuth Subsalicylate 524 mg 12/28/19 10:03 Pepto-Bismol - PO Q1H PRN DIARRHEA Enoxaparin Sodium 40 mg 12/28/19 10:00 12/28/19 10:31 Lovenox - SQ 40 mg DAILY JUAN Administration Eucalyptus/Menthol/Phenol/Sorbitol 1 each 12/28/19 10:03 Cepastat Lozenge - MM 01/03/20 10:03 Q4H PRN SORE THROAT Hydroxyzine Pamoate 25 mg 12/28/19 14:00 12/28/19 17:31 Vistaril - PO 01/03/20 10:03 25 mg Q4HWA JUAN Administration Clindamycin Phosphate 600 mg in 50 mls @ 100 mls/hr 12/29/19 02:00 Cleocin 600 Mg Premix Ivpb - IVPB Q8H-IV [facility] Protocol Magnesium Citrate 300 ml 12/28/19 10:03 Citroma - PO Q48H PRN CONSTIPATION Magnesium Hydroxide 30 ml 12/28/19 10:03 12/28/19 14:27 Milk Of Magnesia - PO 30 ml PRN PRN Administration CONSTIPATION Melatonin 5 mg 12/28/19 22:00 Melatonin PO HS [facility] Methadone HCl 40 mg 12/28/19 10:56 Dolophine - PO DAILY@0600 [facility] Methocarbamol 500 mg 12/28/19 14:30 12/28/19 14:27 Robaxin - PO 500 mg TID JUAN Administration Ondansetron HCl 4 mg 12/28/19 10:03 Zofran Odt - SL 01/03/20 10:04 Q6H PRN Nausea/Vomiting Multivit/Folic Acid/Iron 1 tab 12/29/19 10:00 Vitamins (Sjr) - PO DAILY [facility] Thiamine HCl 100 mg 12/28/19 22:00 Vitamin B1 - PO HS [facility] ASSESSMENT/PLAN: 44 M PSA IVDA heroine/crack/PCP HTN Opioid withdrawal Plan: QTc 425, ok to cont. Methadone, monitor w/ EKG every 1-2 days Cont. Clindamycin for wrist cellulitis Surgery consult Detox consult Tylenol for pain/Methadone also for pain DVT ppx: Lovenox SC Visit type - Emergency Visit Emergency Visit: Yes ED Registration Date: 12/27/19 Care time: The patient presented to the Emergency Department on the above date and was hospitalized for further evaluation of their emergent condition. - New Patient This patient is new to me today: Yes Date on this admission: 12/28/19 - Critical Care Critical Care patient: No - Discharge Referral Referred to [facility] No
[2019-12-28] MEDS: MELATONIN 5 MG TABLETS PO SCH (21:41)
[2019-12-28] MEDS: THIAMINE HCL 100 MG TABLET (FP) PO SCH (21:42)
[2019-12-29] MEDS: CLINDAMYCIN 600MG PREMIX IVPB 600 MG/50 ML BAG IVPB SCH ×3 (02:17→19:57)
[2019-12-29] MEDS: METHOCARBAMOL 500 MG TABLET PO SCH ×3 (05:50→21:41)
[2019-12-29] MEDS: hydrOXYzine PAMOATE 25 MG CAPSULE (FP) PO SCH ×5 (05:50→21:41)
[2019-12-29] MEDS: METHADONE HCL 40 MG DISPERSABLE TABLET PO SCH (05:50)
[2019-12-29 09:01] LABS: BASO % 0.8 % (0-2.0); HEMATOCRIT 37.3 % (35.4-49); HEMOGLOBIN 12.5 GM/dL (11.7-16.9); LYMPH % 45.8 % (8-40); MCH 28.7 pg (25.7-33.7); MCHC 33.6 g/dl (32.0-35.9); MEAN CELL VOLUME 85.4 fl (80-96); MEAN PLT VOLUME 9.9 fl (7.5-11.1); NEUT % 42.4 % (42.8-82.8); PLATELET COUNT 195 K/MM3 (134-434); RBC 4.37 M/mm3 (4.00-5.60); RDW 13.6 % (11.9-15.9); WHITE BLOOD COUNT 4.5 K/mm3 (4.0-10.0)
[2019-12-29 09:40] LABS: ALBUMIN 3.2 g/dl (3.4-5.0); BILIRUBIN,TOTAL 0.5 mg/dL (0.2-1); BLOOD UREA NITROGEN 14.6 mg/dL (7-18); CALCIUM 8.8 mg/dL (8.5-10.1); CREATININE 0.9 mg/dL (0.55-1.3); POTASSIUM 4.4 mmol/L (3.5-5.1)
[2019-12-29] MEDS ORDERED: PT OWN MED DRAWER 7, Y5N ONE ×4 (10:37→21:35)
[2019-12-29] MEDS: PRENATAL VITAMINS W/ FOLIC ACID TABLET (FP) PO SCH (10:40)
[2019-12-29] MEDS: ENOXAPARIN NA (PORCINE) 40 MG/0.4 ML DISP.SYRIN SQ SCH (10:40)
--- NOTE | 2019-12-29 14:06 | EKG ---
Test Reason : Blood Pressure : / mmHG Vent. Rate : 059 BPM Atrial Rate : 059 BPM P-R Int : 140 ms QRS Dur : 094 ms QT Int : 430 ms P-R-T Axes : 040 074 046 degrees QTc Int : 425 ms SINUS BRADYCARDIA OTHERWISE NORMAL ECG WHEN COMPARED WITH ECG OF 27-DEC-2019 10:59, NO SIGNIFICANT CHANGE WAS FOUND Confirmed by MACHELLE COX MD ([id number]) on 12/29/2019 2:06:24 PM Referred By: Pawel INGRAM Confirmed By:MACHELLE COX MD
--- NOTE | 2019-12-29 14:17 | EKG ---
Test Reason : Blood Pressure : / mmHG Vent. Rate : 068 BPM Atrial Rate : 068 BPM P-R Int : 140 ms QRS Dur : 094 ms QT Int : 384 ms P-R-T Axes : 011 048 027 degrees QTc Int : 408 ms NORMAL SINUS RHYTHM NONSPECIFIC T WAVE ABNORMALITY ABNORMAL ECG WHEN COMPARED WITH ECG OF 25-JAN-2018 16:17, NO SIGNIFICANT CHANGE WAS FOUND Confirmed by MACHELLE COX MD ([id number]) on 12/29/2019 2:17:11 PM Referred By: Confirmed By:MACHELLE COX MD
[2019-12-29] MEDS ORDERED: VANCOMYCIN 1 GRAM (PRE-DOCKED) 1,000 MG/250 ML BAG IVPB ONE (18:00)
--- NOTE | 2019-12-29 18:06 | PN ---
Progress Note, Physician History of Present Illness: Pt still with LUE swelling/erythema/tenderness. Rt wrist mild edema. Remains afebrile. - Current Medication List Current Medications: Active Medications Acetaminophen (Tylenol -) 650 mg PO Q6H PRN PRN Reason: PAIN Last Admin: 12/28/19 01:49 Dose: 650 mg Documented by: Al Hydroxide/Mg Hydroxide (Mylanta Oral Suspension -) 30 ml PO Q6H PRN PRN Reason: DYSPEPSIA Albuterol Sulfate (Ventolin Hfa Inhaler -) 2 puff IH Q4H PRN PRN Reason: ASTHMA Bismuth Subsalicylate (Pepto-Bismol -) 524 mg PO Q1H PRN PRN Reason: DIARRHEA Enoxaparin Sodium (Lovenox -) 40 mg SQ DAILY [facility] Last Admin: 12/29/19 10:40 Dose: 40 mg Documented by: Eucalyptus/Menthol/Phenol/Sorbitol (Cepastat Lozenge -) 1 each MM Q4H PRN PRN Reason: SORE THROAT Stop: 01/03/20 10:03 Hydroxyzine Pamoate (Vistaril -) 25 mg PO Q4HWA JUAN Stop: 01/03/20 10:03 Last Admin: 12/29/19 14:13 Dose: 25 mg Documented by: Clindamycin Phosphate (Cleocin 600 Mg Premix Ivpb -) 600 mg in 50 mls @ 100 mls/hr IVPB Q8H-IV JUAN; Protocol Last Admin: 12/29/19 10:39 Dose: 100 mls/hr Documented by: Vancomycin HCl (Vancomycin (Pre-Docked)) 1,000 mg in 250 mls @ 166.667 mls/hr IVPB ONCE ONE; Protocol Stop: 12/29/19 19:29 Magnesium Citrate (Citroma -) 300 ml PO Q48H PRN PRN Reason: CONSTIPATION Magnesium Hydroxide (Milk Of Magnesia -) 30 ml PO PRN PRN PRN Reason: CONSTIPATION Last Admin: 12/28/19 14:27 Dose: 30 ml Documented by: Melatonin (Melatonin) 5 mg PO HS [facility] Last Admin: 12/28/19 21:41 Dose: 5 mg Documented by: Methadone HCl (Dolophine -) 40 mg PO DAILY@0600 [facility] Last Admin: 12/29/19 05:50 Dose: 40 mg Documented by: Methocarbamol (Robaxin -) 500 mg PO TID [facility] Last Admin: 12/29/19 14:12 Dose: 500 mg Documented by: Ondansetron HCl (Zofran Odt -) 4 mg SL Q6H PRN PRN Reason: Nausea/Vomiting Stop: 01/03/20 10:04 Multivit/Folic Acid/Iron ( Vitamins (Sjr) -) 1 tab PO DAILY [facility] Last Admin: 12/29/19 10:40 Dose: 1 tab Documented by: Thiamine HCl (Vitamin B1 -) 100 mg PO HS [facility] Last Admin: 12/28/19 21:42 Dose: 100 mg Documented by: - Objective Vital Signs: Vital Signs Temperature 97.8 F 12/29/19 14:00 Pulse Rate 72 12/29/19 14:00 Respiratory Rate 18 12/29/19 14:00 Blood Pressure 123/73 12/29/19 14:00 O2 Sat by Pulse Oximetry (%) 97 12/29/19 14:00 Constitutional: Yes: No Distress, Calm Eyes: Yes: Conjunctiva Clear Cardiovascular: Yes: Regular Rate and Rhythm Respiratory: Yes: Regular Gastrointestinal: Yes: Normal Bowel Sounds, Soft Genitourinary: Yes: WNL Extremities: Yes: Other (swelling/erythema/tenderness of LUE extending from hand to above elbow. Good ROM of elbow and wrist. Rt wrist mild edema) Neurological: Yes: Alert, Oriented Labs: CBC, BMP 12/29/19 08:25 12/29/19 08:25 INR, PTT INR 1.15 (0.83-1.09) H 12/27/19 10:57 Laboratory Last Values WBC 4.5 K/mm3 (4.0-10.0) 12/29/19 08:25 RBC 4.37 M/mm3 (4.00-5.60) 12/29/19 08:25 Hgb 12.5 GM/dL (11.7-16.9) 12/29/19 08:25 Hct 37.3 % (35.4-49) 12/29/19 08:25 MCV 85.4 fl (80-96) 12/29/19 08:25 MCH 28.7 pg (25.7-33.7) 12/29/19 08:25 MCHC 33.6 g/dl (32.0-35.9) 12/29/19 08:25 RDW 13.6 % (11.9-15.9) 12/29/19 08:25 Plt Count 195 K/MM3 (134-434) 12/29/19 08:25 MPV 9.9 fl (7.5-11.1) 12/29/19 08:25 Absolute Neuts (auto) 1.9 K/mm3 (1.5-8.0) 12/29/19 08:25 Neutrophils % 42.4 % (42.8-82.8) L 12/29/19 08:25 Lymphocytes % 45.8 % (8-40) H 12/29/19 08:25 Monocytes % 9.0 % (3.8-10.2) 12/29/19 08:25 Eosinophils % 2.0 % (0-4.5) 12/29/19 08:25 Basophils % 0.8 % (0-2.0) 12/29/19 08:25 Nucleated RBC % 0 % (0-0) 12/29/19 08:25 PT with INR 13.60 SEC (9.7-13.0) H 12/27/19 10:57 INR 1.15 (0.83-1.09) H 12/27/19 10:57 PTT (Actin FS) 33.9 SECONDS (25.2-36.5) 12/27/19 10:57 Sodium 140 mmol/L (136-145) 12/29/19 08:25 Potassium 4.4 mmol/L (3.5-5.1) 12/29/19 08:25 Chloride 105 mmol/L (98-107) 12/29/19 08:25 Carbon Dioxide 27 mmol/L (21-32) 12/29/19 08:25 Anion Gap 8 MMOL/L (8-16) 12/29/19 08:25 BUN 14.6 mg/dL (7-18) 12/29/19 08:25 Creatinine 0.9 mg/dL (0.55-1.3) 12/29/19 08:25 Est GFR (CKD-EPI)AfAm 120.81 12/29/19 08:25 Est GFR (CKD-EPI)NonAf 104.24 12/29/19 08:25 POC Glucometer 71 UNITS (80-120) 12/27/19 14:50 Random Glucose 75 mg/dL (74-106) 12/29/19 08:25 Calcium 8.8 mg/dL (8.5-10.1) 12/29/19 08:25 Total Bilirubin 0.5 mg/dL (0.2-1) 12/29/19 08:25 AST 19 U/L (15-37) 12/29/19 08:25 ALT 13 U/L (13-61) 12/29/19 08:25 Alkaline Phosphatase 86 U/L (45-117) 12/29/19 08:25 Total Protein 7.0 g/dl (6.4-8.2) 12/29/19 08:25 Albumin 3.2 g/dl (3.4-5.0) L 12/29/19 08:25 Salicylates < 1.7 mg/dL (2.8-20) L 12/27/19 10:57 Opiates Screen Positive ng/ml (SMROZI=402) A* 12/28/19 04:00 Methadone Screen Positive ng/ml (GESITM=905) A* 12/28/19 04:00 Acetaminophen <2.0 ug/ml 12/27/19 10:57 Barbiturate Screen Negative ng/ml (EQHXXI=743) 12/28/19 04:00 Phencyclidine Screen Positive ng/ml (CUTOFF=25) A* 12/28/19 04:00 Ur Amphetamines Screen Negative ng/ml (XDZWRV=987) 12/28/19 04:00 MDMA (Ecstasy) Screen Negative ng/ml (MUZINA=497) 12/28/19 04:00 Benzodiazepines Screen Positive ng/ml (ARPLLV=191) A* 12/28/19 04:00 Cocaine Screen Positive ng/ml (NQVAMC=395) A* 12/28/19 04:00 U Marijuana (THC) Screen Negative ng/ml (CUTOFF=50) 12/28/19 04:00 Alcohol, Quantitative < 3 mg/dL (0.0-5.0) 12/27/19 10:57 Syphilis Serology Reactive (NONREACTIVE) A* 12/29/19 12:30 RPR Titer Reactive 1:1 (NONREACTIVE) H 12/29/19 12:30 COVID-19 (CHERI) Not detected (Not Detected) 12/27/19 14:50 Microbiology 12/27/19 10:57 Blood - Peripheral Venous Blood Culture - Preliminary NO GROWTH OBTAINED AFTER 48 HOURS, INCUBATION TO CONTINUE FOR 3 DAYS. 12/27/19 10:57 Blood - Peripheral Venous Blood Culture - Preliminary NO GROWTH OBTAINED AFTER 48 HOURS, INCUBATION TO CONTINUE FOR 3 DAYS. Problem List - Problems (1) Wound cellulitis Code(s): L03.90 - CELLULITIS, UNSPECIFIED (2) Cocaine dependence Code(s): F14.20 - COCAINE DEPENDENCE, UNCOMPLICATED Qualifiers: Substance use status: uncomplicated Qualified Code(s): F14.20 - Cocaine dependence, uncomplicated (3) Alcohol dependence with uncomplicated withdrawal Code(s): F10.230 - ALCOHOL DEPENDENCE WITH WITHDRAWAL, UNCOMPLICATED (4) Hepatitis C Code(s): B19.20 - UNSPECIFIED VIRAL HEPATITIS C WITHOUT HEPATIC COMA Qualifiers: Viral hepatitis chronicity: chronic Hepatic coma status: without hepatic coma Qualified Code(s): B18.2 - Chronic viral hepatitis C Assessment/Plan 44 y.o. male with PMH of Polysubstance abuse, active IVDU of heroin, cocaine, meth, Syphilis treated, Hep C (treated as per patient), presents with LUE edema/pain/warmth in region of injection site x 2 days LUE cellulitis/ Rt wrist IVDU Polysubstance abuse ETOH abuse Hep C - ? treated Hx of syphilis - ? treated -- d/c Clindamycin, will switch to Vancomycin, monitor renal function , Van comycin trough -- consider CT or MRI -- surgery consult requested -- blood cultures neg so far -- rpr 1:1 but unclear if treated in the past. If not, suggest Doxycycline 100 mg po BID x 4 wks in this PCN allergic patient. -- detox d/w Dr. Palacios
--- NOTE | 2019-12-29 18:13 | PN ---
Physical Exam: SUBJECTIVE: Patient seen and examined at bedside, asking for more methadone but appears comfortable, NAD, awaiting Surgery evaluation for arm swelling. OBJECTIVE: Vital Signs Period Temp Pulse Resp BP Sys/Rossi Pulse Ox Last 24 Hr 97.6 F-98.1 F 61-72 18-18 123-139/73-83 93-97 GENERAL: tired appearing, track mcwilliams throughout, disheveled appearance, unkempt HEENT nC/AT, EOMI, neck supple, dry MM LUNGS: CTAB, no crackles or wheezing HEART: Regular rate and rhythm, S1, S2 without murmur, rub or gallop. ABDOMEN: Soft, nontender, nondistended, normoactive bowel sounds, no guarding, no rebound, no hepatosplenomegaly, no masses. EXTREMITIES: 2+ pulses, warm, well-perfused, track mcwilliams throughout, R wrist scabs and L forearm/arm swelling, good radial pulses b/l NEUROLOGICAL: Cranial nerves II through XII grossly intact. Normal speech, gait not observed. PSYCH: Normal mood, normal affect. SKIN: Warm, dry, normal turgor, no rashes or lesions noted Laboratory Results - last 24 hr 12/27/19 12/29/19 12/29/19 14:50 08:25 08:25 WBC 4.5 RBC 4.37 Hgb 12.5 Hct 37.3 MCV 85.4 MCH 28.7 MCHC 33.6 RDW 13.6 Plt Count 195 MPV 9.9 Absolute Neuts (auto) 1.9 Neutrophils % 42.4 L Lymphocytes % 45.8 H Monocytes % 9.0 Eosinophils % 2.0 Basophils % 0.8 Nucleated RBC % 0 Sodium 140 Potassium 4.4 Chloride 105 Carbon Dioxide 27 Anion Gap 8 BUN 14.6 Creatinine 0.9 Est GFR (CKD-EPI)AfAm 120.81 Est GFR (CKD-EPI)NonAf 104.24 Random Glucose 75 Calcium 8.8 Total Bilirubin 0.5 AST 19 ALT 13 Alkaline Phosphatase 86 Total Protein 7.0 Albumin 3.2 L Syphilis Serology RPR Titer COVID-19 (CHERI) Not detected 12/29/19 12/29/19 12:30 12:30 WBC RBC Hgb Hct MCV MCH MCHC RDW Plt Count MPV Absolute Neuts (auto) Neutrophils % Lymphocytes % Monocytes % Eosinophils % Basophils % Nucleated RBC % Sodium Potassium Chloride Carbon Dioxide Anion Gap BUN Creatinine Est GFR (CKD-EPI)AfAm Est GFR (CKD-EPI)NonAf Random Glucose Calcium Total Bilirubin AST ALT Alkaline Phosphatase Total Protein Albumin Syphilis Serology Reactive A* RPR Titer Reactive 1:1 H COVID-19 (CHERI) Active Medications Generic Name Dose Route Start Last Admin Trade Name Freq PRN Reason Stop Dose Admin Acetaminophen 650 mg 12/27/19 13:05 12/28/19 01:49 Tylenol - PO 650 mg Q6H PRN Administration PAIN Al Hydroxide/Mg Hydroxide 30 ml 12/28/19 10:03 Mylanta Oral Suspension - PO Q6H PRN DYSPEPSIA Albuterol Sulfate 2 puff 12/27/19 13:05 Ventolin Hfa Inhaler - IH Q4H PRN ASTHMA Bismuth Subsalicylate 524 mg 12/28/19 10:03 Pepto-Bismol - PO Q1H PRN DIARRHEA Enoxaparin Sodium 40 mg 12/28/19 10:00 12/29/19 10:40 Lovenox - SQ 40 mg DAILY JUAN Administration Eucalyptus/Menthol/Phenol/Sorbitol 1 each 12/28/19 10:03 Cepastat Lozenge - MM 01/03/20 10:03 Q4H PRN SORE THROAT Hydroxyzine Pamoate 25 mg 12/28/19 14:00 12/29/19 14:13 Vistaril - PO 01/03/20 10:03 25 mg Q4HWA JUAN Administration Vancomycin HCl 1,000 mg/ 250 mls @ 166.667 mls/hr 12/29/19 18:15 Dextrose IVPB Q12H JUAN Protocol Magnesium Citrate 300 ml 12/28/19 10:03 Citroma - PO Q48H PRN CONSTIPATION Magnesium Hydroxide 30 ml 12/28/19 10:03 12/28/19 14:27 Milk Of Magnesia - PO 30 ml PRN PRN Administration CONSTIPATION Melatonin 5 mg 12/28/19 22:00 12/28/19 21:41 Melatonin PO 5 mg HS JUAN Administration Methadone HCl 40 mg 12/28/19 10:56 12/29/19 05:50 Dolophine - PO 40 mg DAILY@0600 JUAN Administration Methocarbamol 500 mg 12/28/19 14:30 12/29/19 14:12 Robaxin - PO 500 mg TID JUAN Administration Ondansetron HCl 4 mg 12/28/19 10:03 Zofran Odt - SL 01/03/20 10:04 Q6H PRN Nausea/Vomiting Multivit/Folic Acid/Iron 1 tab 12/29/19 10:00 12/29/19 10:40 Vitamins (Sjr) - PO 1 tab DAILY JUAN Administration Thiamine HCl 100 mg 12/28/19 22:00 12/28/19 21:42 Vitamin B1 - PO 100 mg HS JUAN Administration ASSESSMENT/PLAN: 44 M L arm cellulitis PSA IVDA heroine/crack/PCP HTN Opioid withdrawal Plan: Titrate Methadone for actual withdrawal symptoms (piloerection,diarrhea/sweating,anxiety, GI sx), however 40mg adequate, when dose is full patient is excessively lethargic. Add Vancomycin for cellulitis to cover gram+, awaiting Surgery evaluation Surgery consult Detox consult ID following Tylenol for pain/Methadone also for pain DVT ppx: Lovenox SC Visit type - Emergency Visit Emergency Visit: Yes ED Registration Date: 12/27/19 Care time: The patient presented to the Emergency Department on the above date and was hospitalized for further evaluation of their emergent condition. - New Patient This patient is new to me today: No - Critical Care Critical Care patient: No - Discharge Referral Referred to [facility] Med P.C.: No
[2019-12-29] MEDS: VANCOMYCIN 1 GRAM (PRE-DOCKED) 1,000 MG/250 ML BAG IVPB SCH (18:57)
[2019-12-29] MEDS: MELATONIN 5 MG TABLETS PO SCH (21:41)
[2019-12-29] MEDS: THIAMINE HCL 100 MG TABLET (FP) PO SCH (21:41)
[2019-12-30] MEDS: VANCOMYCIN 1 GRAM (PRE-DOCKED) 1,000 MG/250 ML BAG IVPB SCH ×2 (06:15→17:43)
[2019-12-30] MEDS ORDERED: PT OWN MED DRAWER 7, Y5N ONE ×2 (06:39→21:09)
[2019-12-30] MEDS: hydrOXYzine PAMOATE 25 MG CAPSULE (FP) PO SCH ×5 (06:42→21:19)
[2019-12-30] MEDS: METHOCARBAMOL 500 MG TABLET PO SCH ×3 (06:42→21:14)
[2019-12-30] MEDS: METHADONE HCL 40 MG DISPERSABLE TABLET PO SCH (06:42)
[2019-12-30] MEDS: ENOXAPARIN NA (PORCINE) 40 MG/0.4 ML DISP.SYRIN SQ SCH (09:17)
[2019-12-30] MEDS: PRENATAL VITAMINS W/ FOLIC ACID TABLET (FP) PO SCH (09:22)
[2019-12-30] MEDS ORDERED: METHADONE HCL 40 MG DISPERSABLE TABLET PO ONE (12:15)
--- NOTE | 2019-12-30 12:32 | PN ---
Progress Note, Physician History of Present Illness: stable calm - Current Medication List Current Medications: Active Medications Acetaminophen (Tylenol -) 650 mg PO Q6H PRN PRN Reason: PAIN Last Admin: 12/28/19 01:49 Dose: 650 mg Documented by: Al Hydroxide/Mg Hydroxide (Mylanta Oral Suspension -) 30 ml PO Q6H PRN PRN Reason: DYSPEPSIA Albuterol Sulfate (Ventolin Hfa Inhaler -) 2 puff IH Q4H PRN PRN Reason: ASTHMA Bismuth Subsalicylate (Pepto-Bismol -) 524 mg PO Q1H PRN PRN Reason: DIARRHEA Enoxaparin Sodium (Lovenox -) 40 mg SQ DAILY [facility] Last Admin: 12/30/19 09:17 Dose: 40 mg Documented by: Eucalyptus/Menthol/Phenol/Sorbitol (Cepastat Lozenge -) 1 each MM Q4H PRN PRN Reason: SORE THROAT Stop: 01/03/20 10:03 [facility] Stop: 01/03/20 10:03 Last Admin: 12/30/19 09:23 Dose: 25 mg Documented by: Vancomycin HCl (Vancomycin (Pre-Docked)) 1,000 mg in 250 mls @ 166.667 mls/hr IVPB Q12H [facility]; Protocol Last Admin: 12/30/19 06:15 Dose: 166.667 mls/hr Documented by: Magnesium Citrate (Citroma -) 300 ml PO Q48H PRN PRN Reason: CONSTIPATION Magnesium Hydroxide (Milk Of Magnesia -) 30 ml PO PRN PRN PRN Reason: CONSTIPATION Last Admin: 12/28/19 14:27 Dose: 30 ml Documented by: Melatonin (Melatonin) 5 mg PO HS [facility] Last Admin: 12/29/19 21:41 Dose: 5 mg Documented by: Methadone HCl (Dolophine -) 40 mg PO DAILY@0600 [facility] Last Admin: 12/30/19 06:42 Dose: 40 mg Documented by: Methocarbamol (Robaxin -) 500 mg PO TID [facility] Last Admin: 12/30/19 06:42 Dose: 500 mg Documented by: Ondansetron HCl (Zofran Odt -) 4 mg SL Q6H PRN PRN Reason: Nausea/Vomiting Stop: 01/03/20 10:04 Multivit/Folic Acid/Iron ( Vitamins (Sjr) -) 1 tab PO DAILY [facility] Last Admin: 12/30/19 09:22 Dose: 1 tab Documented by: Thiamine HCl (Vitamin B1 -) 100 mg PO HS [facility] Last Admin: 12/29/19 21:41 Dose: 100 mg Documented by: - Objective Vital Signs: Vital Signs Temperature 97.8 F 12/30/19 06:00 Pulse Rate 60 12/30/19 06:00 Respiratory Rate 18 12/30/19 06:00 Blood Pressure 132/80 12/30/19 06:00 O2 Sat by Pulse Oximetry (%) 96 12/30/19 06:00 Constitutional: Yes: Calm, Mild Distress Eyes: Yes: Conjunctiva Clear HENT: Yes: Atraumatic, Normocephalic Neck: Yes: Supple, Trachea Midline Cardiovascular: Yes: Regular Rate and Rhythm Respiratory: Yes: Regular, CTA Bilaterally Gastrointestinal: Yes: Normal Bowel Sounds, Soft Musculoskeletal: Yes: Other (left upper ext pain) Wound/Incision: Yes: Other Neurological: Yes: Alert, Oriented Psychiatric: Yes: Alert, Oriented Labs: INR, PTT INR 1.15 (0.83-1.09) H 12/27/19 10:57 Assessment/Plan joni List - Problems (1) Wound cellulitis Code(s): L03.90 - CELLULITIS, UNSPECIFIED (2) Cocaine dependence Code(s): F14.20 - COCAINE DEPENDENCE, UNCOMPLICATED Qualifiers: Substance use status: uncomplicated Qualified Code(s): F14.20 - Cocaine dependence, uncomplicated (3) Alcohol dependence with uncomplicated withdrawal Code(s): F10.230 - ALCOHOL DEPENDENCE WITH WITHDRAWAL, UNCOMPLICATED (4) Hepatitis C Code(s): B19.20 - UNSPECIFIED VIRAL HEPATITIS C WITHOUT HEPATIC COMA Qualifiers: Viral hepatitis chronicity: chronic Hepatic coma status: without hepatic coma Qualified Code(s): B18.2 - Chronic viral hepatitis C Assessment/Plan 44 y.o. male with PMH of Polysubstance abuse, active IVDU of heroin, cocaine, meth, Syphilis treated, Hep C (treated as per patient), presents with LUE edema/pain/warmth in region of injection site x 2 days LUE cellulitis/ Rt wrist IVDU Polysubstance abuse ETOH abuse Hep C - ? treated Hx of syphilis - ? treated plan hand looks better continue abx will d/w the team will be able to switch to po
[2019-12-30 12:36] LABS: BASO % 0.5 % (0-2.0); EOS % 1.5 % (0-4.5); HEMATOCRIT 39.3 % (35.4-49); HEMOGLOBIN 13.3 GM/dL (11.7-16.9); LYMPH % 36.2 % (8-40); MCH 28.7 pg (25.7-33.7); MCHC 33.8 g/dl (32.0-35.9); MEAN CELL VOLUME 84.9 fl (80-96); MEAN PLT VOLUME 9.1 fl (7.5-11.1); MONO % 8.8 % (3.8-10.2); PLATELET COUNT 222 K/MM3 (134-434); RBC 4.63 M/mm3 (4.00-5.60); RDW 13.7 % (11.9-15.9)
[2019-12-30 12:54] LABS: ALBUMIN 3.3 g/dl (3.4-5.0); BILIRUBIN,TOTAL 0.3 mg/dL (0.2-1); BLOOD UREA NITROGEN 8.7 mg/dL (7-18); CREATININE 0.7 mg/dL (0.55-1.3); TOT PROT 7.5 g/dl (6.4-8.2)
--- NOTE | 2019-12-30 15:03 | CONSULT ---
- Consultation REQUESTING PROVIDER: CONSULT REQUEST: We have been asked to surgically evaluate this patient for left arm cellulitis PCP:Chris Lee MD HISTORY OF PRESENT ILLNESS: 44 yo man with a PMH of polysubstance abuse IV injection of cocaine, heroin and meth, hepC (untreated), h/o treated syphilis who presents from [facility] after injecting cocaine and using methadone and developed L arm swelling and erythema. Patient states he injected just lateral to the antecubital fossa and developed pain and swelling. Denies fever/chills as well as SOB, CP, abd pain/n/v/d, dysuria, CANCINO, focal neurologic deficits. He has no other complaints. In ER, pt noted to be afebrile with stable vitals but intoxicated. Recent Travel: none PAST MEDICAL HISTORY: hep c and h/o syphilis PAST SURGICAL HISTORY: unable to recall Social History: Smoking:yes Alcohol:yes Drugs: yes Allergies Penicillins Allergy (Severe, Verified 12/27/19 10:22) Fish Containing Products Allergy (Mild, Verified 12/27/19 10:22) HOME MEDICATIONS: Home Medications Medication Instructions Recorded Methadone [Dolophine -] 0 mg PO DAILY 01/27/18 Albuterol Sulfate Inhaler - 2 puff IH Q4H PRN #1 inhaler 01/29/18 [Ventolin HFA Inhaler -] Diphenhydramine HCl [Benadryl -] 25 mg PO Q6H PRN #12 capsule 01/29/18 Diphenhydramine HCl [Benadryl 25 mg PO Q6H PRN #12 capsule 01/29/18 Capsule -] Hydrocortisone 0.5% Cream [Hytone 1 applic TP BID #1 tube 01/29/18 0.5% Cream -] Prednisone 5 mg PO DAILY #1 tab.ds.pk 01/29/18 Prednisone 10 mg PO DAILY #1 tab.ds.pk 01/29/18 predniSONE [Deltasone] 20 mg PO DAILY #1 tablet 01/29/18 ROS GENERAL/CONSTITUTIONAL: No fever or chills. No weakness. HEAD, EYES, EARS, NOSE AND THROAT: No change in vision. No ear pain or discharge. No sore throat. CARDIOVASCULAR: No chest pain or shortness of breath RESPIRATORY: No cough, wheezing, or hemoptysis. GASTROINTESTINAL: No nausea, vomiting, diarrhea or constipation. GENITOURINARY: No dysuria, frequency, or change in urination. MUSCULOSKELETAL: Left forearm pain, No joint or muscle swelling or pain. No neck or back pain. SKIN: Redness on the left arm NEUROLOGIC: No headache, vertigo, loss of consciousness, or change in strength/sensation. ENDOCRINE: No increased thirst. No abnormal weight change HEMATOLOGIC/LYMPHATIC: No anemia, easy bleeding, or history of blood clots. ALLERGIC/IMMUNOLOGIC: No hives or skin allergy. PHYSICAL EXAMINATION Vital Signs Period Temp Pulse Resp BP Sys/Rossi Pulse Ox Last 24 Hr 97.8 F-98.1 F 60-76 18-18 116-132/77-86 96-96 GENERAL: Awake, alert, and fully oriented, in no acute distress HEAD: No signs of trauma, normocephalic, atraumatic EYES: sclera anicteric, conjunctiva clear LUNGS: Unlabored resp on RA. No distress, speaks full sentences, EXTREMITIES : Left UE: diffuse edema and erythema extending from antecubutal fossa over wrist and hand , no open wounds, rashes or lesions, Compartment soft, supple with diffuse TTP throughout, no obvious abscess or areas of fluctuance. Full ROM at elbow, wrist and moving all digits without limitation full open and close. + radial and ulnar pulses NEUROLOGICAL: Cranial nerves II through XII grossly intact. Normal speech, normal gait, no focal sensorimotor deficits SKIN: He has diffuse skin tattoos. And have cellulitis on the left arm Abnormal Lab Results 12/29/19 12/30/19 12:30 11:30 Anion Gap 7 L AST 12 L ALT 11 L Albumin 3.3 L Hepatitis C Ab (EIA) >11.0 H CBC, BMP 12/30/19 11:30 12/30/19 11:30 Problem List - Problems (1) Left arm cellulitis Assessment/Plan: ASSESSMENT/PLAN: 44 yo man with a PMHx of polysubstance abuse IV injection of cocaine, heroin and meth, hepC (untreated), h/o treated syphilis who presents from [facility] after shooting cocaine and using methadone this AM and was found to have L arm swelling and erythema with palpable pulses, and full ROM of all joints, no evidence for surgical intervention at this time. Plan -IV ABX per ID -ELevate Left UE abov level of the heart -encourage ROM at elbow, wrist and hand -Methadone per program Evaluation and plan discussed with Dr Hanna Code(s): L03.114 - CELLULITIS OF LEFT UPPER LIMB
--- NOTE | 2019-12-30 15:23 | ECHO ---
Name: BONG CLEVELAND Exam:Adult Echocardiogram Study Date: 12/30/2019 02:49 PM Age: 44 yrs Reason For Study: R/O Vegetations Height: 67 in Weight: 214 lb BSA: 2.1 m2 MMode/2D Measurements & Calculations RVDd: 3.0 cm Ao root diam: 3.1 cm IVSd: 0.82 cm LA dimension: 3.6 cm LVIDd: 5.3 cm ACS: 2.0 cm LVIDs: 3.4 cm LVPWd: 0.84 cm EDV(Teich): 134.3 ml LVOT diam: 2.0 cm ESV(Teich): 46.0 ml LAV (MOD-bp): 49.0 ml TAPSE: 2.1 cm RV S Robbie: 13.5 cm/sec Doppler Measurements & Calculations MV E max robbie: 52.3 cm/sec Ao V2 max: 101.8 cm/sec MV A max robbie: 68.1 cm/sec Ao max P.1 mmHg MV E/A: 0.77 Ao V2 mean: 67.3 cm/sec MV dec time: 0.20 sec Ao mean P.1 mmHg Ao V2 VTI: 17.5 cm RUTHY(I,D): 3.1 cm2 RUTHY(V,D): 2.4 cm2 LV V1 max P.4 mmHg SV(LVOT): 53.7 ml LV V1 mean P.4 mmHg LV V1 max: 77.5 cm/sec LV V1 mean: 55.1 cm/sec LV V1 VTI: 16.9 cm PA V2 max: 89.6 cm/sec PI end-d robbie: 97.7 cm/sec PA max P.2 mmHg PA acc slope: 556.6 cm/sec2 PA acc time: 0.12 sec Med Peak E' Robbie: 6.5 cm/sec PA pr(Accel): 25.1 mmHg Med E/e': 8.0 Lat Peak E' Robbie: 10.3 cm/sec Lat E/e': 5.1 Procedure Study Quality: Fair. Left Ventricle The left ventricular size, thickness and function are normal. The left ventricular ejection fraction is normal. Ejection Fraction = 55-60%. Left Ventricular Filling pattern is normal for age. Right Ventricle The right ventricle is normal in size and function. Atria Normal left and right atrial size and function. Aortic Valve The aortic valve is normal in structure and function. Pulmonic Valve The pulmonic valve is not well seen, but is grossly normal. Mild pulmonic valvular regurgitation. Great Vessels The aortic root is normal size. Pericardium/Pleura There is no pericardial effusion. Interpretation Summary This was essentially a normal study. Tony Godinez 12/30/2019 03:22 PM
--- NOTE | 2019-12-30 16:48 | PN ---
Teaching Attending Note Name of Resident: Josselyn Topete ATTENDING PHYSICIAN STATEMENT I saw and evaluated the patient. I reviewed the resident's note and discussed the case with the resident. I agree with the resident's findings and plan as documented. SUBJECTIVE: Patient seen and examined at bedside, no surgical intervention Objective: GENERAL: tired appearing, track mcwilliams throughout, disheveled appearance, unkempt HEENT nC/AT, EOMI, neck supple, dry MM LUNGS: CTAB, no crackles or wheezing HEART: Regular rate and rhythm, S1, S2 without murmur, rub or gallop. ABDOMEN: Soft, nontender, nondistended, normoactive bowel sounds, no guarding, no rebound, no hepatosplenomegaly, no masses. EXTREMITIES: 2+ pulses, warm, well-perfused, track mcwilliams throughout, R wrist scabs and L forearm/arm swelling, good radial pulses b/l NEUROLOGICAL: Cranial nerves II through XII grossly intact. Normal speech, gait not observed. PSYCH: Normal mood, normal affect. SKIN: Warm, dry, normal turgor, no rashes or lesions noted Vital Signs - 24 hr 12/29/19 12/29/19 12/29/19 18:00 21:00 22:00 Temperature 97.8 F 98.1 F Pulse Rate 66 67 Respiratory 18 18 18 Rate Blood Pressure 116/80 117/77 O2 Sat by Pulse 96 96 Oximetry (%) 12/30/19 12/30/19 12/30/19 02:00 06:00 09:00 Temperature 97.8 F 97.8 F Pulse Rate 76 60 Respiratory 18 18 Rate Blood Pressure 122/80 132/80 O2 Sat by Pulse 96 96 Oximetry (%) 12/30/19 12/30/19 10:00 13:25 Temperature 98.0 F 98.0 F Pulse Rate 64 71 Respiratory 18 18 Rate Blood Pressure 130/80 125/86 O2 Sat by Pulse 96 Oximetry (%) Microbiology 12/27/19 10:57 Blood - Peripheral Venous Blood Culture - Preliminary NO GROWTH OBTAINED AFTER 72 HOURS, INCUBATION TO CONTINUE FOR 2 DAYS. 12/27/19 10:57 Blood - Peripheral Venous Blood Culture - Preliminary NO GROWTH OBTAINED AFTER 72 HOURS, INCUBATION TO CONTINUE FOR 2 DAYS. 12/28/19 21:30 Urine - Urine Clean Catch Urine Culture - Final NO GROWTH OBTAINED Laboratory Results - last 24 hr 12/29/19 12/30/19 12/30/19 12:30 11:30 11:30 WBC 5.0 RBC 4.63 Hgb 13.3 Hct 39.3 MCV 84.9 MCH 28.7 MCHC 33.8 RDW 13.7 Plt Count 222 MPV 9.1 Absolute Neuts (auto) 2.7 Neutrophils % 53.0 D Lymphocytes % 36.2 D Monocytes % 8.8 Eosinophils % 1.5 Basophils % 0.5 Nucleated RBC % 0 Sodium 137 Potassium 4.0 Chloride 100 Carbon Dioxide 31 Anion Gap 7 L BUN 8.7 Creatinine 0.7 Est GFR (CKD-EPI)AfAm 133.96 Est GFR (CKD-EPI)NonAf 115.58 Random Glucose 75 Calcium 9.0 Total Bilirubin 0.3 AST 12 L ALT 11 L Alkaline Phosphatase 92 Total Protein 7.5 Albumin 3.3 L Hep A IgM Ab Confirm Negative Hep Bs Antigen Negative Hep B Core IgM Ab Negative Hepatitis C Ab (EIA) >11.0 H Home Medications Medication Instructions Recorded Methadone [Dolophine -] 180 mg PO DAILY 01/27/18 Albuterol Sulfate Inhaler - 2 puff IH Q4H PRN #1 inhaler 01/29/18 [Ventolin HFA Inhaler -] Doxycycline Hyclate 100 mg PO BID 42 Days #84 tablet 12/30/19 levoFLOXacin [Levaquin] 750 mg PO DAILY #10 tab 12/30/19 Current Medications Generic Name Dose Route Start Last Admin Trade Name Freq PRN Reason Stop Dose Admin Acetaminophen 650 mg 12/27/19 13:05 12/28/19 01:49 Tylenol - PO 650 mg Q6H PRN Administration PAIN Al Hydroxide/Mg Hydroxide 30 ml 12/28/19 10:03 Mylanta Oral Suspension - PO Q6H PRN DYSPEPSIA Albuterol Sulfate 2 puff 12/27/19 13:05 Ventolin Hfa Inhaler - IH Q4H PRN ASTHMA Bismuth Subsalicylate 524 mg 12/28/19 10:03 Pepto-Bismol - PO Q1H PRN DIARRHEA Enoxaparin Sodium 40 mg 12/28/19 10:00 12/30/19 09:17 Lovenox - SQ 40 mg DAILY JUAN Administration Eucalyptus/Menthol/Phenol/Sorbitol 1 each 12/28/19 10:03 Cepastat Lozenge - MM 01/03/20 10:03 Q4H PRN SORE THROAT Hydroxyzine Pamoate 25 mg 12/28/19 14:00 12/30/19 13:20 Vistaril - PO 01/03/20 10:03 25 mg Q4HWA JUAN Administration Vancomycin HCl 1,000 mg in 250 mls @ 166.667 mls/hr 12/29/19 18:00 12/30/19 06:15 Vancomycin (Pre-Docked) IVPB 166.667 mls/hr Q12H JUAN Administration Protocol Magnesium Citrate 300 ml 12/28/19 10:03 Citroma - PO Q48H PRN CONSTIPATION Magnesium Hydroxide 30 ml 12/28/19 10:03 12/28/19 14:27 Milk Of Magnesia - PO 30 ml PRN PRN Administration CONSTIPATION Melatonin 5 mg 12/28/19 22:00 12/29/19 21:41 Melatonin PO 5 mg HS JUAN Administration Methadone HCl 40 mg 12/28/19 10:56 12/30/19 06:42 Dolophine - PO 40 mg DAILY@0600 JUAN Administration Methocarbamol 500 mg 12/28/19 14:30 12/30/19 13:20 Robaxin - PO 500 mg TID JUAN Administration Ondansetron HCl 4 mg 12/28/19 10:03 Zofran Odt - SL 01/03/20 10:04 Q6H PRN Nausea/Vomiting Multivit/Folic Acid/Iron 1 tab 12/29/19 10:00 12/30/19 09:22 Vitamins (Sjr) - PO 1 tab DAILY JUAN Administration Thiamine HCl 100 mg 12/28/19 22:00 12/29/19 21:41 Vitamin B1 - PO 100 mg HS JUAN Administration ASSESSMENT AND PLAN: 44 M L arm cellulitis Positive RPR PSA IVDA heroine/crack/PCP HTN Opioid withdrawal Plan: Cont. Methadone Doxycycline x6 weeks for positive RPR, Levaquin 750mg daily x10 days Surgery consult Detox consult ID following Tylenol for pain/Methadone also for pain DVT ppx: Lovenox SC
--- NOTE | 2019-12-30 18:31 | DS ---
Physical Exam: SUBJECTIVE: Patient seen and examined at bedside this morning. OBJECTIVE: Vital Signs Temperature 98.1 F 12/30/19 17:39 Pulse Rate 68 12/30/19 17:39 Respiratory Rate 18 12/30/19 17:39 Blood Pressure 125/84 12/30/19 17:39 O2 Sat by Pulse Oximetry (%) 96 12/30/19 10:00 PHYSICAL EXAM GENERAL: The patient is awake, alert, and fully oriented, in no acute distress. NECK: supple. LUNGS: Breath sounds equal, clear to auscultation bilaterally HEART: Regular rate and rhythm, S1, S2 ABDOMEN: Soft, nontender, nondistended, normoactive bowel sounds EXTREMITIES: 2+ pulses, warm, well-perfused. +multiple track mcwilliams on all extremities. LUE: L forearm/arm swelling, good radial pulses b/l NEUROLOGICAL: Cranial nerves II through XII grossly intact. Normal speech PSYCH: Normal mood, normal affect. SKIN: Warm, dry, normal turgor LABS Laboratory Results - last 24 hr 12/29/19 12/30/19 12/30/19 12:30 11:30 11:30 WBC 5.0 RBC 4.63 Hgb 13.3 Hct 39.3 MCV 84.9 MCH 28.7 MCHC 33.8 RDW 13.7 Plt Count 222 MPV 9.1 Absolute Neuts (auto) 2.7 Neutrophils % 53.0 D Lymphocytes % 36.2 D Monocytes % 8.8 Eosinophils % 1.5 Basophils % 0.5 Nucleated RBC % 0 Sodium 137 Potassium 4.0 Chloride 100 Carbon Dioxide 31 Anion Gap 7 L BUN 8.7 Creatinine 0.7 Est GFR (CKD-EPI)AfAm 133.96 Est GFR (CKD-EPI)NonAf 115.58 Random Glucose 75 Calcium 9.0 Total Bilirubin 0.3 AST 12 L ALT 11 L Alkaline Phosphatase 92 Total Protein 7.5 Albumin 3.3 L Hep A IgM Ab Confirm Negative Hep Bs Antigen Negative Hep B Core IgM Ab Negative Hepatitis C Ab (EIA) >11.0 H HOSPITAL COURSE: Date of Admission:12/27/19 Date of Discharge: 12/30/19 Patient is a 44 yo man with a PMH of polysubstance abuse IV injection of cocaine, heroin and meth, hepC (untreated), h/o treated syphilis who presented from [facility] after shooting cocaine and was found to have L arm swelling and erythema. Patient was admitted for LUE cellulitis. Patient was started on IV Vancomycin and swelling improved. ID and change control specialist consulted. Lab tests positive for Syphilis and Hep C ab. Blood culture negative. Patient discharged home with instructions to take Levaquin and Doxycycline, and to follow up with ID and with his Methadone program. Minutes to complete discharge: 38 Discharge Summary Problems reviewed: Yes Reason For Visit: CELLULITIS OF RIGHT UPPER EXTREMITY Current Active Problems Left arm cellulitis (Acute) Wound cellulitis (Acute) Condition: Stable - Instructions Diet, Activity, Other Instructions: Your visit You were admitted to the hospital because you have an infection on your arm. This was likely because of the injections from the drugs. You were evaluated by the infectious disease doctor and you are to take antibiotics at home. You were also tested for the syphilis infection and was positive. You will need to take antibiotics for 6 weeks. Syphilis is an infection that you can catch during sex and is called "sexually transmitted infection". In some cases, the infection moves to the brain, ears, or eyes. You can reduce your chances of getting syphilis by: using a latex condom every time you have sex, avoid sex when you or your partner has any symptoms that could be caused by an infection. Medications Please take the following medications as prescribed: 1. Doxycycline 100mg tab, two times a day for 6 weeks. 2. Levaquin 750mg once a day for 10 days. Follow up Please follow up with your primary care doctor within 1-2 weeks. If you do not have once, we provided a referral at our medical clinic at [facility]. Please call to schedule an appointment. Please follow up with the infectious disease doctor (Dr. Bolivar) in 1 week. A referral has been given. Additional info Please call 911 or go to the ED if with any worsening fevers, chills ,headache, dizziness, chest pain, shortness of breath, belly pain, diarrhea, or any new concerns noted. Referrals: [facility] [place] [facility] [Provider Group] Kay Bolivar MD [Staff Physician] - Disposition: HOME - Home Medications Comprehensive Discharge Medication List: Ambulatory Orders Methadone [Dolophine -] 180 mg PO DAILY 01/27/18 Albuterol Sulfate Inhaler - [Ventolin HFA Inhaler -] 2 puff IH Q4H PRN #1 inhaler 01/29/18 Doxycycline Hyclate 100 mg PO BID 42 Days #84 tablet 12/30/19 levoFLOXacin [Levaquin] 750 mg PO DAILY #10 tab 12/30/19 This patient is new to me today: Yes Date on this admission: 12/30/19 Emergency Visit: Yes ED Registration Date: 12/27/19 Care time: The patient presented to the Emergency Department on the above date and was hospitalized for further evaluation of their emergent condition. Critical Care patient: No - Discharge Referral Referred to [facility] Med P.C.: No ATTENDING PHYSICIAN STATEMENT I saw and evaluated the patient. I reviewed the resident's note and discussed the case with the resident. I agree with the resident's findings and plan as documented. SUBJECTIVE: OBJECTIVE: ASSESSMENT AND PLAN:
[2019-12-30] MEDS: THIAMINE HCL 100 MG TABLET (FP) PO SCH (21:13)
[2019-12-30] MEDS: MELATONIN 5 MG TABLETS PO SCH (21:13)
[2019-12-31] MEDS: VANCOMYCIN 1 GRAM (PRE-DOCKED) 1,000 MG/250 ML BAG IVPB SCH (05:37)
[2019-12-31] MEDS ORDERED: PT OWN MED DRAWER 7, Y5N ONE ×5 (05:40→14:18)
[2019-12-31] MEDS ORDERED: levoFLOXacin 750 MG TABLET PO SCH (06:00)
[2019-12-31] MEDS: METHOCARBAMOL 500 MG TABLET PO SCH ×2 (06:16→14:19)
[2019-12-31] MEDS: METHADONE HCL 40 MG DISPERSABLE TABLET PO SCH (06:16)
[2019-12-31] MEDS: hydrOXYzine PAMOATE 25 MG CAPSULE (FP) PO SCH ×3 (06:16→14:19)
--- NOTE | 2019-12-31 09:07 | PN ---
Teaching Attending Note Name of Resident: Josselyn Topete ATTENDING PHYSICIAN STATEMENT I saw and evaluated the patient. I reviewed the resident's note and discussed the case with the resident. I agree with the resident's findings and plan as documented. SUBJECTIVE: Remains afebrile OBJECTIVE: Vital Signs Temperature 98.0 F 12/31/19 06:00 Pulse Rate 64 12/31/19 06:00 Respiratory Rate 16 12/31/19 06:00 Blood Pressure 107/65 12/31/19 06:00 O2 Sat by Pulse Oximetry (%) 94 L 12/31/19 06:00 General: Young man, comfortable, not in distress HEENT mucous membranes moist, no anemia, no jaundice, PERRLA, no nystagmus Neck: No JVD, supple, no bruit, thyroid palpably normal, normal carotid pulsations. Chest: Nontender, clear to auscultation bilaterally CVS: S1-S2 regular no murmur/gallop/rub Abdomen: Nondistended, soft, bowel sounds present. Extremities: Left upper extremity induration no edema., No Calf tenderness, pulses present [employer]: AO X3 , no gross motor sensory deficit CBC, BMP 12/30/19 11:30 12/30/19 11:30 Cultures: Negative Active Medications Acetaminophen (Tylenol -) 650 mg PO Q6H PRN PRN Reason: PAIN Last Admin: 12/28/19 01:49 Dose: 650 mg Documented by: Al Hydroxide/Mg Hydroxide (Mylanta Oral Suspension -) 30 ml PO Q6H PRN PRN Reason: DYSPEPSIA Albuterol Sulfate (Ventolin Hfa Inhaler -) 2 puff IH Q4H PRN PRN Reason: ASTHMA Bismuth Subsalicylate (Pepto-Bismol -) 524 mg PO Q1H PRN PRN Reason: DIARRHEA Doxycycline Hyclate (Vibramycin -) 100 mg PO BID@1000,1800 JUAN Enoxaparin Sodium (Lovenox -) 40 mg SQ DAILY JUAN Last Admin: 12/30/19 09:17 Dose: 40 mg Documented by: Eucalyptus/Menthol/Phenol/Sorbitol (Cepastat Lozenge -) 1 each MM Q4H PRN PRN Reason: SORE THROAT Stop: 01/03/20 10:03 Hydro[facility]ine [facility]ate [facility] Stop: 01/03/20 10:03 Last Admin: 12/31/19 06:16 Dose: 25 mg Documented by: Vancomycin HCl (Vancomycin (Pre-Docked)) 1,000 mg in 250 mls @ 166.667 mls/hr IVPB Q12H [facility]; Protocol Last Admin: 12/31/19 05:37 Dose: Not Given Documented by: Levofloxacin (Levaquin) 750 mg PO DAILY@0600 [facility] Last Admin: 12/31/19 06:16 Dose: 750 mg Documented by: Magnesium Citrate (Citroma -) 300 ml PO Q48H PRN PRN Reason: CONSTIPATION Magnesium Hydroxide (Milk Of Magnesia -) 30 ml PO PRN PRN PRN Reason: CONSTIPATION Last Admin: 12/28/19 14:27 Dose: 30 ml Documented by: Melatonin (Melatonin) 5 mg PO [facility] Last Admin: 12/30/19 21:13 Dose: 5 mg Documented by: Methadone HCl (Dolophine -) 40 mg PO DAILY@0600 [facility] Last Admin: 12/31/19 06:16 Dose: 40 mg Documented by: Methocarbamol (Robaxin -) 500 mg PO TID [facility] Last Admin: 12/31/19 06:16 Dose: 500 mg Documented by: Ondansetron HCl (Zofran Odt -) 4 mg SL Q6H PRN PRN Reason: Nausea/Vomiting Stop: 01/03/20 10:04 Multivit/Folic Acid/Iron ( Vitamins (Sjr) -) 1 tab PO DAILY [facility] Last Admin: 12/30/19 09:22 Dose: 1 tab Documented by: Thiamine HCl (Vitamin B1 -) 100 mg PO [facility] Last Admin: 12/30/19 21:13 Dose: 100 mg Documented by: ASSESSMENT AND PLAN:44 yo man with a PMH of polysubstance abuse IV injection of cocaine, heroin and meth, hepC (untreated), h/o treated syphilis who presents from [facility] after shooting cocaine and using methadone this AM and was found to have left arm swelling and erythema Impression: Cellulitis 1. Left upper extremity cellulitis: No fever, WBC is normal, all cultures are negative, improving with current management, considering very high dose of methadone and minimal sign of infection will continue doxycycline for 10 days, DC levofloxacin. 2. Polysubstance abuse: Already on methadone program follow-up as an outpatient Rest continue current management follow-up with the PCP.
[2019-12-31] MEDS ORDERED: DOXYCYCLINE HYCLATE 100 MG CAPSULE PO SCH (10:00)
[2019-12-31] MEDS: PRENATAL VITAMINS W/ FOLIC ACID TABLET (FP) PO SCH (10:20)
[2019-12-31] MEDS: ENOXAPARIN NA (PORCINE) 40 MG/0.4 ML DISP.SYRIN SQ SCH (10:20)
[2019-12-31] MEDS ORDERED: METHADONE HCL 40 MG DISPERSABLE TABLET PO ONE (11:22)
--- NOTE | 2019-12-31 12:56 | PN ---
Progress Note, Physician - Current Medication List Current Medications: Active Medications Acetaminophen (Tylenol -) 650 mg PO Q6H PRN PRN Reason: PAIN Last Admin: 12/28/19 01:49 Dose: 650 mg Documented by: Al Hydroxide/Mg Hydroxide (Mylanta Oral Suspension -) 30 ml PO Q6H PRN PRN Reason: DYSPEPSIA Albuterol Sulfate (Ventolin Hfa Inhaler -) 2 puff IH Q4H PRN PRN Reason: ASTHMA Bismuth Subsalicylate (Pepto-Bismol -) 524 mg PO Q1H PRN PRN Reason: DIARRHEA Doxycycline Hyclate (Vibramycin -) 100 mg PO BID@1000,1800 [facility] Last Admin: 12/31/19 10:20 Dose: 100 mg Documented by: Enoxaparin Sodium (Lovenox -) 40 mg SQ DAILY [facility] Last Admin: 12/31/19 10:20 Dose: 40 mg Documented by: Eucalyptus/Menthol/Phenol/Sorbitol (Cepastat Lozenge -) 1 each MM Q4H PRN PRN Reason: SORE THROAT Stop: 01/03/20 10:03 Hydroxyzine Pamoate ([facility] -) [facility] Stop: 01/03/20 10:03 Last Admin: 12/31/19 10:19 Dose: 25 mg Documented by: Vancomycin HCl (Vancomycin (Pre-Docked)) 1,000 mg in 250 mls @ 166.667 mls/hr IVPB Q12H [facility]; Protocol Last Admin: 12/31/19 05:37 Dose: Not Given Documented by: Levofloxacin (Levaquin) 750 mg PO DAILY@0600 [facility] Last Admin: 12/31/19 06:16 Dose: 750 mg Documented by: Magnesium Citrate (Citroma -) 300 ml PO Q48H PRN PRN Reason: CONSTIPATION Magnesium Hydroxide (Milk Of Magnesia -) 30 ml PO PRN PRN PRN Reason: CONSTIPATION Last Admin: 12/28/19 14:27 Dose: 30 ml Documented by: Melatonin (Melatonin) 5 mg PO [facility] Last Admin: 12/30/19 21:13 Dose: 5 mg Documented by: Methadone HCl (Dolophine -) 40 mg PO DAILY@0600 [facility] Last Admin: 12/31/19 06:16 Dose: 40 mg Documented by: Methocarbamol (Robaxin -) 500 mg PO TID [facility] Last Admin: 12/31/19 06:16 Dose: 500 mg Documented by: Ondansetron HCl (Zofran Odt -) 4 mg SL Q6H PRN PRN Reason: Nausea/Vomiting Stop: 01/03/20 10:04 Multivit/Folic Acid/Iron ( Vitamins (Sjr) -) 1 tab PO DAILY [facility] Last Admin: 12/31/19 10:20 Dose: 1 tab Documented by: Thiamine HCl (Vitamin B1 -) 100 mg PO HS [facility] Last Admin: 12/30/19 21:13 Dose: 100 mg Documented by: - Objective Vital Signs: Vital Signs Temperature 97.9 F 12/31/19 09:02 Pulse Rate 66 12/31/19 09:02 Respiratory Rate 16 12/31/19 09:02 Blood Pressure 148/77 12/31/19 09:02 O2 Sat by Pulse Oximetry (%) 97 12/31/19 10:43 Labs: CBC, BMP 12/30/19 11:30 12/30/19 11:30 INR, PTT INR 1.15 (0.83-1.09) H 12/27/19 10:57
[2019-12-31 15:07] VITALS: BP 118/93; TEMP 98.3
[2019-12-31 15:20] VITALS: PULSE 81
[2019-12-31] MEDS ORDERED: METHADONE HCL 10 MG TABLET PO ONE (15:26)
== END 2019-12-31 16:35 | disposition home or self-care (01) | DRG 603 ==
LOC: JER 09:48 → JERBED 12:51 → J5S 15:30
PROVIDERS: ADMIT Internal Medicine; ATTEND Internal Medicine
DX: L03.113 Cellulitis of right upper limb (principal); F14.20 Cocaine dependence, uncomplicated; F11.23 Opioid dependence with withdrawal; F10.230 Alcohol dependence with withdrawal, uncomplicated; F19.10 Other psychoactive substance abuse, uncomplicated; B19.20 Unspecified viral hepatitis C without hepatic coma; A53.9 Syphilis, unspecified
CPT/HCPCS: 36415; 71045-TC-FY; 80053; 80074; 80307; 82962; 85025; 85610; 85730; 86593; 86780; 87040; 87086; 87522; 93005; 93010; 93306-TC; 97161-GP; 99285-25; U0003